=== PATIENT | female | born 1970 | race Caucasian/White ===

== ENCOUNTER 2020-10-28 11:31 | Inpatient (IN) | payer MEDICAID ==
[~2020-10-28] VITALS: Ht 177.8 cm; Wt 48.1 kg
--- NOTE | 2020-10-28 11:57 | NUR ---
PT COMES IN C/O LEFT LOWER QUAD PELVIC PAIN WITH LEFT FLANK TENDERNESS. STATES DIARRHEA FOLLOWING EACH MEAL. STATES 15-20 LB WEIGHT LOSS SINCE 06/2020. STATES NAUSEA AND LOSS OF APPETITE. MONITORS CONNECTED. VSS. WARM BLANKET PROVIDED. SIGN OTHER AT BESIDE.
--- NOTE | 2020-10-28 11:57 | NUR ---
PROVIDER AT BEDSIDE
[2020-10-28] MEDS ORDERED: SODIUM CHLORIDE 0.9% 1,000ML IVBOLUS ONE (12:00)
[2020-10-28] MEDS ORDERED: ONDANSETRON 2MG/ML, 2ML IVPush ONE (12:00)
[2020-10-28] MEDS ORDERED: MORPHINE SULFATE 4 MG/ML, 1ML ONE ×2 (12:16→13:18)
[2020-10-28] MEDS ORDERED: ONDANSETRON 2MG/ML, 2ML ONE (12:16)
[2020-10-28] MEDS: MORPHINE SULFATE 4 MG/ML, 1ML IVPush PRN ×2 (12:18→13:19)
--- NOTE | 2020-10-28 12:26 | NUR ---
PT RESTING ON GURNEY. ORDERED MEDICATIONS ADMINISTERING AND INFUSING. PT STATES UNABLE TO URINATE OR HAVE BM AT THIS TIME. PT EDUCATED TO CALL FOR ASSISTANCE WHEN NEED TO VOID OR HAVE BM. VSJosé Luis. SARAHI.
--- NOTE | 2020-10-28 12:47 | NUR ---
PT RESTING ON GURNEY. FSBG AT 70 AND DOCUMENTED. PT. STATES PAIN LEVEL "MUCH BETTER". VSS. NAD
[2020-10-28 12:53] LABS: ALANINE AMINOTRANSFERASE 22 U/L (12-78); ALBUMIN 2.7 g/dL (3.4-5.0); ANION GAP 7 mmol/L (5-15); CALCIUM 8.5 mg/dL (8.5-10.1); CHLORIDE 106 mmol/L (98-107); CREATININE 0.85 mg/dL (0.55-1.02)
[2020-10-28 12:55] LABS: ALKALINE PHOSPHATASE 139 U/L (45-117); BILIRUBIN,TOTAL 0.3 mg/dL (0.2-1.0); TOTAL PROTEIN 6.7 g/dL (6.4-8.2)
[2020-10-28 12:57] LABS: BASOPHILS % (AUTO) 1 % (0-1); EOSINOPHILS % (AUTO) 1 % (1-7); LYMPHOCYTES % (AUTO) 8 % (22-44); MEAN CORPUSCULAR HEMOGLOBIN 20.7 pg (27.0-34.8); MEAN CORPUSCULAR HGB CONC 30.6 g/dL (32.4-35.8); MEAN PLATELET VOLUME 7.2 fL (7.4-10.4); MONOCYTES % (AUTO) 8 % (2-9); NEUTROPHILS % (AUTO) 82 % (42-75); PLATELET COUNT 771 x10^3/uL (130-400); RED BLOOD COUNT 4.29 x10^6/uL (3.82-5.3); RED CELL DISTRIBUTION WIDTH 18.1 % (9.6-15.2)
--- NOTE | 2020-10-28 13:11 | NUR ---
AMBULAED TO BATHROOM WITH STEADY GAIT
[2020-10-28 13:21] LABS: ANISOCYTOSIS 1+; MD MORPH REVIEW ONLY
[2020-10-28 13:22] LABS: <PLATELET ESTIMATE> INCREASED; HYPOCHROMIA 1+; LARGE PLATELETS 1+; MICROCYTOSIS 1+; OVALOCYTES 1+
[2020-10-28] MEDS ORDERED: OMNIPAQUE 350 MG/ML, 100ML BOTTLE ONE (13:35)
[2020-10-28 14:00] LABS: MICROSCOPIC INDICATED
[2020-10-28] MEDS ORDERED: ACETAMINOPHEN 325 MG TABLET PO PRN (15:00)
[2020-10-28] MEDS ORDERED: HYDROmorphone 1 MG/ML, 1ML INJ IV PRN (15:00)
[2020-10-28] MEDS ORDERED: ENOXAPARIN 40 MG/0.4 ML SQ SCH (15:00)
[2020-10-28 15:16] LABS: ABSOLUTE RETICS # 0.064 x10^6/uL (0.5-2.5); RED BLOOD COUNT 4.23 x10^6/uL (3.82-5.3); RETICULOCYTE COUNT % 1.52 % (0.5-1.5)
[2020-10-28] MEDS ORDERED: GOLYTELY 4,000ML ORAL.SOL PO ONE (15:30)
[2020-10-28] MEDS ORDERED: OMNIPAQUE 350 MG/ML, 75ML BOTTLE ONE (16:31)
[2020-10-28] MEDS: SODIUM CHLORIDE 0.9% 1,000 ML IV SCH (17:31)
[2020-10-28] MEDS: PIPERACILLIN/TAZO/PMX 3.375GM 50 ML IV SCH (17:31)
[2020-10-28] MEDS: ONDANSETRON 2MG/ML, 2ML IVPush PRN (17:47)
[2020-10-28 17:51] LABS: MICROSCOPIC NOT IND
[2020-10-28] MEDS: FAMOTIDINE 20 MG/2 ML IVPush SCH (19:41)
[2020-10-28] MEDS: HYDROmorphone 1 MG/ML, 1ML INJ IV PRN (21:01)
[2020-10-28 21:14] VITALS: BP 112/55
[2020-10-29 01:17] VITALS: BP 122/72
[2020-10-29] MEDS: PIPERACILLIN/TAZO/PMX 3.375GM 50 ML IV SCH ×3 (01:20→17:10)
[2020-10-29] MEDS: HYDROmorphone 1 MG/ML, 1ML INJ IV PRN ×5 (01:21→21:11)
[2020-10-29 05:40] LABS: ALANINE AMINOTRANSFERASE 18 U/L (12-78); ALBUMIN 2.3 g/dL (3.4-5.0); ALKALINE PHOSPHATASE 113 U/L (45-117); ANION GAP 7 mmol/L (5-15); BILIRUBIN, DIRECT 0.1 mg/dL (0.1-0.2); BILIRUBIN,INDIRECT 0.3 mg/dL (0.0-2.0); BILIRUBIN,TOTAL 0.4 mg/dL (0.2-1.0); CALCIUM 7.9 mg/dL (8.5-10.1); CHLORIDE 109 mmol/L (98-107); CREATININE 0.59 mg/dL (0.55-1.02); TOTAL PROTEIN 5.9 g/dL (6.4-8.2)
[2020-10-29] MEDS: SODIUM CHLORIDE 0.9% 1,000 ML IV SCH ×3 (06:20→21:10)
[2020-10-29 07:47] VITALS: BP 128/73
[2020-10-29] MEDS: FAMOTIDINE 20 MG/2 ML IVPush SCH ×2 (08:13→21:10)
[2020-10-29 09:48] LABS: BASOPHILS % (AUTO) 1 % (0-1); EOSINOPHILS % (AUTO) 1 % (1-7); LYMPHOCYTES % (AUTO) 5 % (22-44); MEAN CORPUSCULAR HEMOGLOBIN 20.9 pg (27.0-34.8); MEAN CORPUSCULAR HGB CONC 30.5 g/dL (32.4-35.8); MEAN PLATELET VOLUME 7.2 fL (7.4-10.4); MONOCYTES % (AUTO) 5 % (2-9); NEUTROPHILS % (AUTO) 89 % (42-75); PLATELET COUNT 713 x10^3/uL (130-400); RED CELL DISTRIBUTION WIDTH 17.9 % (9.6-15.2)
[2020-10-29 10:04] LABS: CLOSTRIDIUM DIFFICILE ANTIGEN POSITIVE; CLOSTRIDIUM DIFFICILE TOXIN NEGATIVE (Negative)
[2020-10-29 10:13] LABS: MD SCAN
[2020-10-29] MEDS ORDERED: CHLORHEXIDINE 15 ML UDC MM ONE (10:30)
[2020-10-29] MEDS ORDERED: PROPOFOL 50 ML ONE (11:17)
[2020-10-29] MEDS ORDERED: ACETAMINOPHEN 325 MG TABLET PO PRN (11:30)
[2020-10-29] MEDS ORDERED: FENTANYL PF 100 MCG/2ML IV PRN (11:30)
[2020-10-29] MEDS ORDERED: ONDANSETRON 2MG/ML, 2ML IVPush PRN (11:30)
[2020-10-29 11:41] LABS: HCG UR SG 1.031 (1.003-1.030)
[2020-10-29 12:45] VITALS: BP 114/73
[2020-10-29 14:43] VITALS: BP 114/73
[2020-10-29 19:03] VITALS: BP 120/70
[2020-10-29] MEDS: VANCOMYCIN 50 MG/ML ORAL SUSP PO SCH (23:40)
[2020-10-30] MEDS: PIPERACILLIN/TAZO/PMX 3.375GM 50 ML IV SCH ×3 (01:26→20:15)
[2020-10-30] MEDS: HYDROmorphone 1 MG/ML, 1ML INJ IV PRN ×3 (01:27→10:44)
[2020-10-30 01:43] VITALS: BP 104/62
[2020-10-30] MEDS: VANCOMYCIN 50 MG/ML ORAL SUSP PO SCH ×4 (05:47→23:00)
[2020-10-30 07:00] VITALS: BP 132/66
[2020-10-30] MEDS: FAMOTIDINE 20 MG/2 ML IVPush SCH ×2 (09:40→22:37)
[2020-10-30] MEDS: ONDANSETRON 2MG/ML, 2ML IVPush PRN ×2 (09:40→13:30)
[2020-10-30] MEDS: SODIUM CHLORIDE 0.9% 1,000 ML IV SCH (09:42)
[2020-10-30] MEDS ORDERED: OXYcodone/APAP 7.5/325MG TABLET PO PRN (11:30)
[2020-10-30 13:41] VITALS: BP 112/71
[2020-10-30] MEDS ORDERED: FENTANYL PF 250 MCG/5ML ONE (14:38)
[2020-10-30] MEDS ORDERED: MIDAZOLAM 1 MG/ML, 2ML ONE (14:38)
[2020-10-30] MEDS ORDERED: CHLORHEXIDINE 15 ML UDC MM ONE (15:00)
[2020-10-30] MEDS ORDERED: SUGAMMADEX 200 MG/2 ML IVPush ONE (15:14)
[2020-10-30] MEDS ORDERED: PHENYLEPHRINE 10 MG/ML ONE (15:14)
[2020-10-30] MEDS ORDERED: ONDANSETRON 2MG/ML, 2ML ONE (15:14)
[2020-10-30] MEDS ORDERED: ALBUMIN HUMAN 5% 500 ML ONE (15:31)
[2020-10-30] MEDS ORDERED: PROMETHAZINE 25 MG/ML, 1ML ONE (15:41)
[2020-10-30] MEDS ORDERED: FENTANYL PF 100 MCG/2ML ONE ×2 (15:41→16:52)
[2020-10-30] MEDS ORDERED: MEPERIDINE/PF 25MG/ML,1ML ONE (15:42)
[2020-10-30] MEDS ORDERED: hydrALAzine 20 MG/ML, 1ML IV PRN (16:00)
[2020-10-30] MEDS ORDERED: HYDROmorphone 1 MG/ML, 1ML INJ IVPush PRN (16:00)
[2020-10-30] MEDS ORDERED: OXYcodone 5 MG/5 ML ORAL.SOL UDC PO PRN (16:00)
[2020-10-30] MEDS ORDERED: MIDAZOLAM 1 MG/ML, 2ML IV PRN (16:00)
[2020-10-30] MEDS ORDERED: LABETALOL 5MG/ML, 20ML IV PRN (16:00)
[2020-10-30] MEDS ORDERED: MEPERIDINE/PF 25MG/0.5ML IVPush PRN (16:00)
[2020-10-30] MEDS ORDERED: FENTANYL PF 100 MCG/2ML IV PRN (16:00)
[2020-10-30] MEDS ORDERED: PROMETHAZINE 12.5 MG SUPP PR PRN (16:00)
[2020-10-30] MEDS ORDERED: DIPHENHYDRAMINE 50 MG/ML, 1ML IVPush PRN (16:00)
[2020-10-30] MEDS ORDERED: DIAZEPAM 5 MG/ML, 2ML IVPush PRN (16:00)
[2020-10-30] MEDS ORDERED: PROMETHAZINE 25 MG/ML, 1ML IVPush PRN (16:00)
[2020-10-30] MEDS ORDERED: ONDANSETRON 2MG/ML, 2ML IVPush PRN (16:00)
[2020-10-30] MEDS ORDERED: EPHEDRINE 50 MG/ML, 1ML IVPush PRN (16:00)
[2020-10-30] MEDS ORDERED: ALBUTEROL SULFATE 2.5 MG/3 ML NPPB PRN (16:00)
[2020-10-30] MEDS ORDERED: ROCURONIUM 10MG/ML,5ML ONE (16:11)
[2020-10-30] MEDS ORDERED: PROPOFOL 10 MG/ML, 20ML ONE (16:11)
[2020-10-30] MEDS ORDERED: SODIUM BICARBONATE 1 MEQ/ML, 50ML VIAL ONE (17:35)
[2020-10-30] MEDS ORDERED: LORazepam 1MG TABLET PO PRN (19:30)
[2020-10-30] MEDS ORDERED: ACETAMINOPHEN 325 MG TABLET PO PRN (19:30)
[2020-10-30] MEDS ORDERED: DIPHENHYDRAMINE 50 MG/ML, 1ML IV PRN (19:30)
[2020-10-30] MEDS ORDERED: LORazepam 2 MG/ML, 1ML IV PRN (19:30)
[2020-10-30] MEDS ORDERED: morphine SULFATE 10 MG/ML, 1ML IV PRN (19:30)
[2020-10-30] MEDS ORDERED: ACETAMINOPHEN 650 MG SUPP PR PRN (19:30)
[2020-10-30 19:50] VITALS: BP 134/82
[2020-10-30] MEDS: LACTATED RINGERS 1,000 ML IV SCH (20:09)
[2020-10-30] MEDS: KETOROLAC 30 MG/1 ML IV PRN (22:36)
[2020-10-31] MEDS: PIPERACILLIN/TAZO/PMX 3.375GM 50 ML IV SCH ×4 (01:47→21:43)
[2020-10-31 02:33] VITALS: BP 97/61
[2020-10-31] MEDS: LACTATED RINGERS 1,000 ML IV SCH (03:10)
[2020-10-31 05:22] LABS: MEAN CORPUSCULAR HGB CONC 32.3 g/dL (32.4-35.8); MEAN PLATELET VOLUME 6.9 fL (7.4-10.4); PLATELET COUNT 528 x10^3/uL (130-400); RED CELL DISTRIBUTION WIDTH 22.3 % (9.6-15.2)
[2020-10-31 05:35] LABS: ALANINE AMINOTRANSFERASE 12 U/L (12-78); ALBUMIN 1.8 g/dL (3.4-5.0); ANION GAP 7 mmol/L (5-15); CALCIUM 7.7 mg/dL (8.5-10.1); CHLORIDE 106 mmol/L (98-107); CREATININE 0.58 mg/dL (0.55-1.02)
[2020-10-31 05:37] LABS: ALKALINE PHOSPHATASE 62 U/L (45-117); BILIRUBIN,TOTAL 6.9 mg/dL (0.2-1.0); TOTAL PROTEIN 4.4 g/dL (6.4-8.2)
[2020-10-31] MEDS: ENOXAPARIN 40 MG/0.4 ML SQ SCH (06:00)
[2020-10-31 06:13] LABS: MD YES
[2020-10-31 06:16] LABS: <PLATELET ESTIMATE> INCREASED; <PLT MORPHOLOGY> NORMAL PLT MORPH; ANISOCYTOSIS 1+; BAND#(MANUAL) 8.39 x10^3/uL; BANDS%(MANUAL) 43 % (0-7); HYPOCHROMIA 1+; LYMPH#(MANUAL) 0.59 x10^3/uL (1-3.4); LYMPHS% (MANUAL) 3 % (22-44); METAMYELOCYTES# (MANUAL) 1.37 x10^3/uL (0-0); METAMYELOCYTES% (MANUAL) 7 % (0-1); MICROCYTOSIS 1+; MONOS#(MANUAL) 0.59 x10^3/uL (0.3-2.7); MONOS% (MANUAL) 3 % (2-9); OVALOCYTES 1+; PMNS WITH VACUOLES 1+; SEG#(MANUAL) 8.58 x10^3/uL (1.8-6.8); SEGS% (MANUAL) 44 % (42-75)
[2020-10-31] MEDS: VANCOMYCIN 50 MG/ML ORAL SUSP PO SCH ×4 (06:28→23:33)
[2020-10-31] MEDS ORDERED: MAGNESIUM SULFATE PMX 4GM/100M 100 ML IVPB ONE (07:00)
[2020-10-31 08:09] VITALS: BP 98/62
[2020-10-31] MEDS ORDERED: D5%-0.9% NACL+KCL 20MEQ 1,000 ML IV SCH (08:30)
[2020-10-31 08:32] LABS: MEAN CORPUSCULAR HGB CONC 32.3 g/dL (32.4-35.8); MEAN PLATELET VOLUME 6.9 fL (7.4-10.4); PLATELET COUNT 599 x10^3/uL (130-400); RED BLOOD COUNT 4.93 x10^6/uL (3.82-5.3); RED CELL DISTRIBUTION WIDTH 22.6 % (9.6-15.2)
[2020-10-31 08:36] LABS: ANION GAP 5 mmol/L (5-15); CALCIUM 8.1 mg/dL (8.5-10.1); CHLORIDE 108 mmol/L (98-107); CREATININE 0.62 mg/dL (0.55-1.02)
[2020-10-31] MEDS ORDERED: TPN PER PHARMACY IV SCH (09:00)
[2020-10-31] MEDS: FAMOTIDINE 20 MG/2 ML IVPush SCH ×2 (09:42→21:43)
[2020-10-31] MEDS: POTASSIUM CHLORIDE 40 MEQ in SODIUM CHLORIDE 0.9% 500 ML IV SCH ×2 (09:53→16:52)
[2020-10-31 10:19] LABS: MD YES
[2020-10-31 10:21] LABS: <PLATELET ESTIMATE> INCREASED; <PLT MORPHOLOGY> NORMAL PLT MORPH; ANISOCYTOSIS 1+; BAND#(MANUAL) 7.26 x10^3/uL; BANDS%(MANUAL) 32 % (0-7); LYMPH#(MANUAL) 0.91 x10^3/uL (1-3.4); LYMPHS% (MANUAL) 4 % (22-44); METAMYELOCYTES# (MANUAL) 0.45 x10^3/uL (0-0); METAMYELOCYTES% (MANUAL) 2 % (0-1); MICROCYTOSIS 1+; MONOS#(MANUAL) 0.68 x10^3/uL (0.3-2.7); MONOS% (MANUAL) 3 % (2-9); OVALOCYTES 1+; PMNS WITH VACUOLES 1+; POLYCHROMASIA 1+; SEG#(MANUAL) 13.39 x10^3/uL (1.8-6.8); SEGS% (MANUAL) 59 % (42-75)
[2020-10-31 12:17] VITALS: BP 88/55
[2020-10-31] MEDS ORDERED: SODIUM CHLORIDE 0.9%, 500ML IVBOLUS ONE ×2 (13:00→19:00)
[2020-10-31 15:03] VITALS: BP 95/59
[2020-10-31] MEDS ORDERED: DEXTROSE 10% 500 ML IV PRN (17:00)
[2020-10-31] MEDS ORDERED: D5%-0.9% NACL 1,000 ML IV SCH ×2 (17:00→18:30)
[2020-10-31] MEDS ORDERED: AMINO ACID 10% IV SCH (17:00)
[2020-10-31] MEDS ORDERED: DEXTROSE 70% IV SCH (17:00)
[2020-10-31] MEDS ORDERED: [UNRECOGNIZED DRUG - OTHER] IV SCH (17:00)
[2020-10-31] MEDS ORDERED: DEXTROSE 50%, 50ML SYRINGE IVPush PRN (17:00)
[2020-10-31] MEDS ORDERED: SMOF TPN IV SCH (17:00)
[2020-10-31] MEDS ORDERED: FAT EMUL IV SCH (17:00)
[2020-10-31] MEDS: FILTER, DISP 1.2 MICRON FOR TPN/PVN IV PRN (17:10)
[2020-10-31 18:45] VITALS: BP 146/85
[2020-10-31 20:06] VITALS: BP 109/66
[2020-10-31] MEDS: INSULIN REGULAR LOW DOSE Q6H X 48HRS SQ-INSULIN SCH (21:00)
[2020-11-01 01:34] VITALS: BP 100/62
[2020-11-01] MEDS: INSULIN REGULAR LOW DOSE Q6H X 48HRS SQ-INSULIN SCH ×4 (03:00→20:24)
[2020-11-01] MEDS: PIPERACILLIN/TAZO/PMX 3.375GM 50 ML IV SCH ×4 (04:06→20:06)
[2020-11-01] MEDS: KETOROLAC 30 MG/1 ML IV PRN ×3 (04:06→22:49)
[2020-11-01 04:45] LABS: MEAN CORPUSCULAR HEMOGLOBIN 23.9 pg (27.0-34.8); MEAN PLATELET VOLUME 6.9 fL (7.4-10.4); PLATELET COUNT 534 x10^3/uL (130-400); RED BLOOD COUNT 4.28 x10^6/uL (3.82-5.3); RED CELL DISTRIBUTION WIDTH 22.5 % (9.6-15.2)
[2020-11-01 04:57] LABS: ALBUMIN 1.6 g/dL (3.4-5.0); ANION GAP 4 mmol/L (5-15); CALCIUM 7.9 mg/dL (8.5-10.1); CHLORIDE 110 mmol/L (98-107)
[2020-11-01 05:02] LABS: ALANINE AMINOTRANSFERASE 18 U/L (12-78); ALKALINE PHOSPHATASE 65 U/L (45-117); CREATININE 0.58 mg/dL (0.55-1.02); PREALBUMIN < 3.0 mg/dL (20.0-40.0); TOTAL PROTEIN 4.6 g/dL (6.4-8.2); TRIGLYCERIDES 203 mg/dL (50-200)
[2020-11-01] MEDS: VANCOMYCIN 50 MG/ML ORAL SUSP PO SCH ×4 (05:24→22:49)
[2020-11-01] MEDS: ENOXAPARIN 40 MG/0.4 ML SQ SCH (05:26)
[2020-11-01 05:45] LABS: MD YES
[2020-11-01 05:47] LABS: ANISOCYTOSIS 1+; BAND#(MANUAL) 4.88 x10^3/uL; BANDS%(MANUAL) 23 % (0-7); LYMPH#(MANUAL) 0.85 x10^3/uL (1-3.4); LYMPHS% (MANUAL) 4 % (22-44); MICROCYTOSIS 1+; MONOS#(MANUAL) 0.85 x10^3/uL (0.3-2.7); MONOS% (MANUAL) 4 % (2-9); SEGS% (MANUAL) 69 % (42-75)
[2020-11-01 05:48] LABS: <PLATELET ESTIMATE> INCREASED; <PLT MORPHOLOGY> NORMAL PLT MORPH; OVALOCYTES 1+
[2020-11-01 07:23] VITALS: BP 94/56
[2020-11-01] MEDS: FAMOTIDINE 20 MG/2 ML IVPush SCH ×2 (08:52→20:19)
[2020-11-01 12:55] LABS: HCG UR SG 1.032 (1.003-1.030)
[2020-11-01 13:44] VITALS: BP 107/67
[2020-11-01] MEDS ORDERED: [UNRECOGNIZED DRUG - OTHER] IV SCH (17:00)
[2020-11-01] MEDS ORDERED: SMOF TPN IV SCH (17:00)
[2020-11-01] MEDS ORDERED: DEXTROSE 70% IV SCH (17:00)
[2020-11-01] MEDS ORDERED: FAT EMUL IV SCH (17:00)
[2020-11-01] MEDS ORDERED: AMINO ACID 10% IV SCH (17:00)
[2020-11-01] MEDS: FILTER, DISP 1.2 MICRON FOR TPN/PVN IV PRN (17:50)
[2020-11-01 20:15] VITALS: BP 122/74
[2020-11-02 01:21] VITALS: BP 108/63
[2020-11-02] MEDS: PIPERACILLIN/TAZO/PMX 3.375GM 50 ML IV SCH ×4 (02:52→21:29)
[2020-11-02] MEDS: INSULIN REGULAR LOW DOSE Q6H X 48HRS SQ-INSULIN SCH ×3 (03:00→15:00)
[2020-11-02] MEDS: VANCOMYCIN 50 MG/ML ORAL SUSP PO SCH ×4 (04:51→23:36)
[2020-11-02] MEDS: KETOROLAC 30 MG/1 ML IV PRN ×2 (04:51→19:16)
[2020-11-02] MEDS: ENOXAPARIN 40 MG/0.4 ML SQ SCH (04:57)
[2020-11-02 05:11] LABS: PLATELET COUNT 542 x10^3/uL (130-400); RED BLOOD COUNT 4.56 x10^6/uL (3.82-5.3); RED CELL DISTRIBUTION WIDTH 23.3 % (9.6-15.2)
[2020-11-02 05:20] LABS: ANION GAP 2 mmol/L (5-15); CALCIUM 8.2 mg/dL (8.5-10.1); CHLORIDE 102 mmol/L (98-107); CREATININE 0.58 mg/dL (0.55-1.02)
[2020-11-02 06:04] LABS: MD YES
[2020-11-02 06:05] LABS: BAND#(MANUAL) 1.42 x10^3/uL; BANDS%(MANUAL) 6 % (0-7); LYMPH#(MANUAL) 1.19 x10^3/uL (1-3.4); LYMPHS% (MANUAL) 5 % (22-44); MONOS#(MANUAL) 1.42 x10^3/uL (0.3-2.7); MONOS% (MANUAL) 6 % (2-9); SEG#(MANUAL) 19.67 x10^3/uL (1.8-6.8); SEGS% (MANUAL) 83 % (42-75)
[2020-11-02 06:06] LABS: <PLATELET ESTIMATE> INCREASED; <PLT MORPHOLOGY> NORMAL PLT MORPH; ANISOCYTOSIS 1+; MICROCYTOSIS 1+; OVALOCYTES 1+; POLYCHROMASIA 1+
[2020-11-02 06:07] LABS: HYPOCHROMIA 1+; TOXIC GRAN 1+
[2020-11-02 06:08] LABS: PMNS WITH VACUOLES 1+
[2020-11-02 08:37] VITALS: BP 118/69
[2020-11-02] MEDS: FAMOTIDINE 20 MG/2 ML IVPush SCH ×2 (09:23→21:29)
[2020-11-02 13:35] VITALS: BP 133/84
[2020-11-02] MEDS ORDERED: GLUCAGON 1 MG IM PRN (16:30)
[2020-11-02] MEDS ORDERED: DEXTROSE 4 GM TAB.CHEW PO PRN (16:30)
[2020-11-02] MEDS ORDERED: DEXTROSE 50%, 50ML SYRINGE IVPush PRN (16:30)
[2020-11-02] MEDS ORDERED: FAT EMUL IV SCH (17:00)
[2020-11-02] MEDS ORDERED: [UNRECOGNIZED DRUG - OTHER] IV SCH (17:00)
[2020-11-02] MEDS ORDERED: DEXTROSE 70% IV SCH (17:00)
[2020-11-02] MEDS ORDERED: SMOF TPN IV SCH (17:00)
[2020-11-02] MEDS ORDERED: AMINO ACID 10% IV SCH (17:00)
[2020-11-02] MEDS: D5%-0.45% NACL 1,000 ML IV SCH (17:02)
[2020-11-02 18:44] VITALS: BP 119/73
[2020-11-02] MEDS: SODIUM CHLORIDE FLUSH 10ML SYR IVF SCH (21:29)
[2020-11-03 00:34] VITALS: BP 108/69
[2020-11-03] MEDS: PIPERACILLIN/TAZO/PMX 3.375GM 50 ML IV SCH ×4 (03:12→20:36)
[2020-11-03] MEDS: ONDANSETRON 2MG/ML, 2ML IV PRN ×3 (03:17→20:35)
[2020-11-03 05:35] LABS: MEAN CORPUSCULAR HEMOGLOBIN 24.2 pg (27.0-34.8); MEAN CORPUSCULAR HGB CONC 32.2 g/dL (32.4-35.8); MEAN PLATELET VOLUME 7.2 fL (7.4-10.4); PLATELET COUNT 517 x10^3/uL (130-400); RED BLOOD COUNT 4.85 x10^6/uL (3.82-5.3); RED CELL DISTRIBUTION WIDTH 24.3 % (9.6-15.2)
[2020-11-03 05:46] LABS: ANION GAP 3 mmol/L (5-15); CALCIUM 8.5 mg/dL (8.5-10.1); CHLORIDE 100 mmol/L (98-107)
[2020-11-03 05:47] LABS: CREATININE 0.51 mg/dL (0.55-1.02)
[2020-11-03] MEDS: VANCOMYCIN 50 MG/ML ORAL SUSP PO SCH ×4 (05:51→23:17)
[2020-11-03] MEDS: ENOXAPARIN 40 MG/0.4 ML SQ SCH (05:53)
[2020-11-03 06:20] LABS: MD YES
[2020-11-03 06:21] LABS: BAND#(MANUAL) 0.41 x10^3/uL; BANDS%(MANUAL) 2 % (0-7); EOS#(MANUAL) 0.82 x10^3/uL (0.0-0.4); EOS% (MANUAL) 4 % (1-7); LYMPH#(MANUAL) 1.22 x10^3/uL (1-3.4); LYMPHS% (MANUAL) 6 % (22-44); METAMYELOCYTES% (MANUAL) 1 % (0-1); MONOS#(MANUAL) 2.65 x10^3/uL (0.3-2.7); MONOS% (MANUAL) 13 % (2-9); SEGS% (MANUAL) 74 % (42-75)
[2020-11-03 06:22] LABS: ANISOCYTOSIS 1+; HYPOCHROMIA 1+; MICROCYTOSIS 1+; POLYCHROMASIA 1+
[2020-11-03 06:23] LABS: OVALOCYTES 1+; PMNS WITH VACUOLES 1+
[2020-11-03 06:26] LABS: <PLATELET ESTIMATE> INCREASED; <PLT MORPHOLOGY> NORMAL PLT MORPH
[2020-11-03] MEDS ORDERED: INSULIN REGULAR LOW DOSE QDAY SQ-INSULIN SCH (07:30)
[2020-11-03 08:11] VITALS: BP 107/70
[2020-11-03] MEDS: SODIUM CHLORIDE FLUSH 10ML SYR IVF SCH ×2 (09:00→20:36)
[2020-11-03] MEDS: FAMOTIDINE 20 MG/2 ML IVPush SCH (09:10)
[2020-11-03] MEDS: D5%-0.45% NACL 1,000 ML IV SCH (11:25)
[2020-11-03 13:46] VITALS: BP 116/74
[2020-11-03] MEDS: FILTER, DISP 1.2 MICRON FOR TPN/PVN IV PRN (16:45)
[2020-11-03] MEDS ORDERED: AMINO ACID 10% IV SCH (17:00)
[2020-11-03] MEDS ORDERED: FAT EMUL IV SCH (17:00)
[2020-11-03] MEDS ORDERED: [UNRECOGNIZED DRUG - OTHER] IV SCH (17:00)
[2020-11-03] MEDS ORDERED: DEXTROSE 70% IV SCH (17:00)
[2020-11-03] MEDS ORDERED: SMOF TPN IV SCH (17:00)
[2020-11-03 18:18] VITALS: BP 117/74
[2020-11-03] MEDS ORDERED: DIPHENHYDRAMINE 50 MG/ML, 1ML ONE (23:22)
[2020-11-03] MEDS: DIPHENHYDRAMINE 25 MG CAPSULE PO PRN (23:24)
[2020-11-04 00:31] VITALS: BP 111/75
[2020-11-04] MEDS: PIPERACILLIN/TAZO/PMX 3.375GM 50 ML IV SCH ×4 (02:43→21:37)
[2020-11-04] MEDS: ENOXAPARIN 40 MG/0.4 ML SQ SCH (05:34)
[2020-11-04] MEDS: VANCOMYCIN 50 MG/ML ORAL SUSP PO SCH ×4 (05:35→23:00)
[2020-11-04 05:39] LABS: ANION GAP 3 mmol/L (5-15); CALCIUM 8.7 mg/dL (8.5-10.1); CHLORIDE 102 mmol/L (98-107); CREATININE 0.48 mg/dL (0.55-1.02)
[2020-11-04 05:43] LABS: MEAN CORPUSCULAR HEMOGLOBIN 23.9 pg (27.0-34.8); MEAN CORPUSCULAR HGB CONC 31.8 g/dL (32.4-35.8); MEAN PLATELET VOLUME 7.4 fL (7.4-10.4); PLATELET COUNT 563 x10^3/uL (130-400); RED BLOOD COUNT 5.47 x10^6/uL (3.82-5.3); RED CELL DISTRIBUTION WIDTH 24.7 % (9.6-15.2)
[2020-11-04] MEDS: ONDANSETRON 2MG/ML, 2ML IV PRN (05:43)
[2020-11-04 06:17] LABS: MD YES
[2020-11-04 06:18] LABS: <PLATELET ESTIMATE> INCREASED; ANISOCYTOSIS 1+; BAND#(MANUAL) 1.16 x10^3/uL; BANDS%(MANUAL) 4 % (0-7); EOS#(MANUAL) 0.29 x10^3/uL (0.0-0.4); EOS% (MANUAL) 1 % (1-7); HYPOCHROMIA 1+; LYMPH#(MANUAL) 1.75 x10^3/uL (1-3.4); LYMPHS% (MANUAL) 6 % (22-44); MICROCYTOSIS 1+; MONOS#(MANUAL) 4.07 x10^3/uL (0.3-2.7); MONOS% (MANUAL) 14 % (2-9); OVALOCYTES 1+; POLYCHROMASIA 1+; SEG#(MANUAL) 21.83 x10^3/uL (1.8-6.8); SEGS% (MANUAL) 75 % (42-75)
[2020-11-04 06:19] LABS: <PLT MORPHOLOGY> NORMAL PLT MORPH
[2020-11-04 06:21] LABS: PMNS WITH VACUOLES 1+
[2020-11-04] MEDS: D5%-0.45% NACL 1,000 ML IV SCH (09:00)
[2020-11-04] MEDS: SODIUM CHLORIDE FLUSH 10ML SYR IVF SCH ×2 (09:00→21:37)
[2020-11-04 09:09] VITALS: BP 113/78
[2020-11-04] MEDS ORDERED: METOCLOPRAMIDE 5 MG/ML, 2ML IVPush PRN (11:00)
[2020-11-04] MEDS: METRONIDAZOLE PMX 500MG/100ML 100 ML IV SCH ×2 (12:02→16:48)
[2020-11-04 13:38] VITALS: BP 111/73
[2020-11-04] MEDS: FILTER, DISP 1.2 MICRON FOR TPN/PVN IV PRN (16:48)
[2020-11-04] MEDS ORDERED: DEXTROSE 70% IV SCH (17:00)
[2020-11-04] MEDS ORDERED: AMINO ACID 10% IV SCH (17:00)
[2020-11-04] MEDS ORDERED: FAT EMUL IV SCH (17:00)
[2020-11-04] MEDS ORDERED: [UNRECOGNIZED DRUG - OTHER] IV SCH (17:00)
[2020-11-04] MEDS ORDERED: SMOF TPN IV SCH (17:00)
[2020-11-04 19:14] VITALS: BP 107/71
[2020-11-05] MEDS: PIPERACILLIN/TAZO/PMX 3.375GM 50 ML IV SCH ×4 (02:54→21:02)
[2020-11-05 02:56] VITALS: BP 104/69
[2020-11-05] MEDS: VANCOMYCIN 50 MG/ML ORAL SUSP PO SCH (05:00)
[2020-11-05] MEDS: ENOXAPARIN 40 MG/0.4 ML SQ SCH (05:37)
[2020-11-05] MEDS: D5%-0.45% NACL 1,000 ML IV SCH (05:56)
[2020-11-05 06:25] LABS: BASOPHILS % (AUTO) 0 % (0-1); EOSINOPHILS % (AUTO) 3 % (1-7); LYMPHOCYTES % (AUTO) 7 % (22-44); MEAN CORPUSCULAR HEMOGLOBIN 23.9 pg (27.0-34.8); MEAN CORPUSCULAR HGB CONC 31.8 g/dL (32.4-35.8); MEAN PLATELET VOLUME 7.3 fL (7.4-10.4); MONOCYTES % (AUTO) 15 % (2-9); NEUTROPHILS % (AUTO) 75 % (42-75); PLATELET COUNT 517 x10^3/uL (130-400); RED BLOOD COUNT 4.96 x10^6/uL (3.82-5.3); RED CELL DISTRIBUTION WIDTH 24.8 % (9.6-15.2)
[2020-11-05 06:31] LABS: ALBUMIN 1.8 g/dL (3.4-5.0); CALCIUM 8.6 mg/dL (8.5-10.1); CHLORIDE 106 mmol/L (98-107)
[2020-11-05 06:37] LABS: ALANINE AMINOTRANSFERASE 20 U/L (12-78); ALKALINE PHOSPHATASE 174 U/L (45-117); ANION GAP 4 mmol/L (5-15); CREATININE 0.58 mg/dL (0.55-1.02); PREALBUMIN 7.2 mg/dL (20.0-40.0); TOTAL PROTEIN 5.6 g/dL (6.4-8.2); TRIGLYCERIDES 148 mg/dL (50-200)
[2020-11-05 07:00] LABS: MD SCAN
[2020-11-05 07:53] VITALS: BP 95/63
[2020-11-05] MEDS: SODIUM CHLORIDE FLUSH 10ML SYR IVF SCH ×2 (08:26→21:04)
[2020-11-05] MEDS: metroNIDAZOLE 500 MG TABLET PO SCH ×2 (09:58→17:06)
[2020-11-05] MEDS: ONDANSETRON 2MG/ML, 2ML IV PRN (10:50)
[2020-11-05 14:05] VITALS: BP 107/74
[2020-11-05] MEDS ORDERED: OMNIPAQUE 350 MG/ML, 100ML BOTTLE ONE (14:58)
[2020-11-05] MEDS ORDERED: FAT EMUL IV SCH (17:00)
[2020-11-05] MEDS ORDERED: [UNRECOGNIZED DRUG - OTHER] IV SCH (17:00)
[2020-11-05] MEDS ORDERED: DEXTROSE 70% IV SCH (17:00)
[2020-11-05] MEDS ORDERED: SMOF TPN IV SCH (17:00)
[2020-11-05] MEDS ORDERED: AMINO ACID 10% IV SCH (17:00)
[2020-11-05 20:31] VITALS: BP 105/68
[2020-11-06] MEDS: D5%-0.45% NACL 1,000 ML IV SCH ×2 (00:14→17:55)
[2020-11-06 00:16] VITALS: BP 98/63
[2020-11-06] MEDS: metroNIDAZOLE 500 MG TABLET PO SCH ×3 (01:38→20:33)
[2020-11-06] MEDS: PIPERACILLIN/TAZO/PMX 3.375GM 50 ML IV SCH ×3 (03:20→15:41)
[2020-11-06] MEDS: ENOXAPARIN 40 MG/0.4 ML SQ SCH (05:31)
[2020-11-06 06:29] LABS: MEAN CORPUSCULAR HEMOGLOBIN 24.1 pg (27.0-34.8); MEAN CORPUSCULAR HGB CONC 32.2 g/dL (32.4-35.8); MEAN PLATELET VOLUME 7.3 fL (7.4-10.4); PLATELET COUNT 462 x10^3/uL (130-400); RED BLOOD COUNT 4.73 x10^6/uL (3.82-5.3); RED CELL DISTRIBUTION WIDTH 25.3 % (9.6-15.2)
[2020-11-06 06:41] LABS: CHLORIDE 102 mmol/L (98-107)
[2020-11-06 06:47] LABS: ALANINE AMINOTRANSFERASE 21 U/L (12-78); ALBUMIN 1.9 g/dL (3.4-5.0); ALKALINE PHOSPHATASE 153 U/L (45-117); ANION GAP 3 mmol/L (5-15); BILIRUBIN,TOTAL 0.9 mg/dL (0.2-1.0); CALCIUM 8.3 mg/dL (8.5-10.1); TOTAL PROTEIN 5.7 g/dL (6.4-8.2)
[2020-11-06 06:57] VITALS: BP 92/54
[2020-11-06 07:40] LABS: MD YES
[2020-11-06 07:42] LABS: <PLATELET ESTIMATE> INCREASED; <PLT MORPHOLOGY> NORMAL PLT MORPH; ANISOCYTOSIS 1+; BAND#(MANUAL) 0.72 x10^3/uL; BANDS%(MANUAL) 4 % (0-7); EOS#(MANUAL) 0.36 x10^3/uL (0.0-0.4); EOS% (MANUAL) 2 % (1-7); HYPOCHROMIA 1+; LYMPH#(MANUAL) 1.62 x10^3/uL (1-3.4); LYMPHS% (MANUAL) 9 % (22-44); MICROCYTOSIS 1+; MONOS#(MANUAL) 2.34 x10^3/uL (0.3-2.7); MONOS% (MANUAL) 13 % (2-9); OVALOCYTES 1+; POLYCHROMASIA 1+; SEG#(MANUAL) 12.96 x10^3/uL (1.8-6.8); SEGS% (MANUAL) 72 % (42-75)
[2020-11-06] MEDS: ONDANSETRON 2MG/ML, 2ML IV PRN (08:45)
[2020-11-06] MEDS: SODIUM CHLORIDE FLUSH 10ML SYR IVF SCH ×2 (09:53→20:37)
[2020-11-06] MEDS ORDERED: D5%-0.45% NACL 1,000 ML IV SCH (10:00)
[2020-11-06 13:28] VITALS: BP 110/67
[2020-11-06] MEDS ORDERED: DEXTROSE 70% IV SCH (17:00)
[2020-11-06] MEDS ORDERED: SMOF TPN IV SCH (17:00)
[2020-11-06] MEDS ORDERED: FILTER, DISP 1.2 MICRON FOR TPN/PVN IV PRN (17:00)
[2020-11-06] MEDS ORDERED: [UNRECOGNIZED DRUG - OTHER] IV SCH (17:00)
[2020-11-06] MEDS ORDERED: AMINO ACID 10% IV SCH (17:00)
[2020-11-06] MEDS ORDERED: FAT EMUL IV SCH (17:00)
[2020-11-06 19:44] VITALS: BP 100/63
[2020-11-06] MEDS: DIPHENHYDRAMINE 25 MG CAPSULE PO PRN ×2 (20:33→21:54)
[2020-11-07 01:33] VITALS: BP 111/72
[2020-11-07 04:23] LABS: MEAN CORPUSCULAR HEMOGLOBIN 23.8 pg (27.0-34.8); MEAN CORPUSCULAR HGB CONC 31.3 g/dL (32.4-35.8); MEAN PLATELET VOLUME 7.4 fL (7.4-10.4); PLATELET COUNT 448 x10^3/uL (130-400); RED BLOOD COUNT 4.74 x10^6/uL (3.82-5.3)
[2020-11-07 04:34] LABS: ANION GAP 5 mmol/L (5-15); CALCIUM 8.3 mg/dL (8.5-10.1); CHLORIDE 106 mmol/L (98-107); CREATININE 0.54 mg/dL (0.55-1.02)
[2020-11-07] MEDS: metroNIDAZOLE 500 MG TABLET PO SCH (05:00)
[2020-11-07 05:45] LABS: MD YES
[2020-11-07 05:47] LABS: ANISOCYTOSIS 1+; BAND#(MANUAL) 0.47 x10^3/uL; BANDS%(MANUAL) 3 % (0-7); BASOS#(MANUAL) 0.16 x10^3/uL (0-0.1); BASOS% (MANUAL) 1 % (0-1); EOS#(MANUAL) 1.09 x10^3/uL (0.0-0.4); EOS% (MANUAL) 7 % (1-7); HYPOCHROMIA 1+; LYMPH#(MANUAL) 1.72 x10^3/uL (1-3.4); LYMPHS% (MANUAL) 11 % (22-44); METAMYELOCYTES# (MANUAL) 0.16 x10^3/uL (0-0); METAMYELOCYTES% (MANUAL) 1 % (0-1); MICROCYTOSIS 1+; MONOS#(MANUAL) 1.56 x10^3/uL (0.3-2.7); MONOS% (MANUAL) 10 % (2-9); MYELOCYTES# (MANUAL) 0.16 x10^3/uL (0-0); MYELOCYTES% (MANUAL) 1 % (0-0); OVALOCYTES 1+; POLYCHROMASIA 1+; SEGS% (MANUAL) 66 % (42-75)
[2020-11-07 05:48] LABS: <PLATELET ESTIMATE> INCREASED; <PLT MORPHOLOGY> NORMAL PLT MORPH
[2020-11-07] MEDS: ENOXAPARIN 40 MG/0.4 ML SQ SCH (05:55)
[2020-11-07 07:01] VITALS: BP 106/69
[2020-11-07] MEDS: SODIUM CHLORIDE FLUSH 10ML SYR IVF SCH ×2 (09:00→21:41)
[2020-11-07] MEDS: AMOXICILLIN/CLAV 875-125MG TABLET PO SCH ×2 (09:11→17:35)
[2020-11-07] MEDS: ONDANSETRON 2MG/ML, 2ML IV PRN (11:19)
[2020-11-07 12:23] VITALS: BP 114/79
[2020-11-07] MEDS: SIMETHICONE 80 MG CHEW TAB PO PRN ×2 (14:27→21:40)
[2020-11-07] MEDS ORDERED: SMOF TPN IV SCH (17:00)
[2020-11-07] MEDS ORDERED: [UNRECOGNIZED DRUG - OTHER] IV SCH (17:00)
[2020-11-07] MEDS ORDERED: DEXTROSE 70% IV SCH (17:00)
[2020-11-07] MEDS ORDERED: FAT EMUL IV SCH (17:00)
[2020-11-07] MEDS ORDERED: FILTER, DISP 1.2 MICRON FOR TPN/PVN IV PRN (17:00)
[2020-11-07] MEDS ORDERED: AMINO ACID 10% IV SCH (17:00)
[2020-11-07] MEDS: D5%-0.45% NACL 1,000 ML IV SCH (17:35)
[2020-11-07 18:41] VITALS: BP 105/69
[2020-11-07] MEDS: DIPHENHYDRAMINE 25 MG CAPSULE PO PRN ×2 (20:55→21:47)
[2020-11-08 00:21] VITALS: BP 104/69
[2020-11-08] MEDS: AMOXICILLIN/CLAV 875-125MG TABLET PO SCH ×3 (01:12→17:21)
[2020-11-08 05:10] LABS: ANION GAP 6 mmol/L (5-15); CALCIUM 8.2 mg/dL (8.5-10.1); CHLORIDE 109 mmol/L (98-107); CREATININE 0.48 mg/dL (0.55-1.02)
[2020-11-08 05:11] LABS: MEAN CORPUSCULAR HEMOGLOBIN 23.8 pg (27.0-34.8); MEAN CORPUSCULAR HGB CONC 31.3 g/dL (32.4-35.8); MEAN PLATELET VOLUME 7.6 fL (7.4-10.4); PLATELET COUNT 508 x10^3/uL (130-400); RED BLOOD COUNT 4.76 x10^6/uL (3.82-5.3); RED CELL DISTRIBUTION WIDTH 25.2 % (9.6-15.2)
[2020-11-08 05:51] LABS: MD YES
[2020-11-08 05:53] LABS: <PLATELET ESTIMATE> INCREASED; <PLT MORPHOLOGY> NORMAL PLT MORPH; ANISOCYTOSIS 1+; EOS#(MANUAL) 0.17 x10^3/uL (0.0-0.4); EOS% (MANUAL) 1 % (1-7); HYPOCHROMIA 1+; LYMPH#(MANUAL) 1.36 x10^3/uL (1-3.4); LYMPHS% (MANUAL) 8 % (22-44); MICROCYTOSIS 1+; MONOS#(MANUAL) 0.85 x10^3/uL (0.3-2.7); MONOS% (MANUAL) 5 % (2-9); MYELOCYTES# (MANUAL) 0.34 x10^3/uL (0-0); MYELOCYTES% (MANUAL) 2 % (0-0); OVALOCYTES 1+; POLYCHROMASIA 1+; SEG#(MANUAL) 14.28 x10^3/uL (1.8-6.8); SEGS% (MANUAL) 84 % (42-75)
[2020-11-08] MEDS: ENOXAPARIN 40 MG/0.4 ML SQ SCH (06:29)
[2020-11-08] MEDS: SIMETHICONE 80 MG CHEW TAB PO PRN ×3 (06:36→23:10)
[2020-11-08 06:55] VITALS: BP 97/62
[2020-11-08] MEDS: SODIUM CHLORIDE FLUSH 10ML SYR IVF SCH ×2 (09:30→23:10)
[2020-11-08 12:56] VITALS: BP 114/76
[2020-11-08] MEDS ORDERED: SMOF TPN IV SCH (17:00)
[2020-11-08] MEDS ORDERED: FAT EMUL IV SCH (17:00)
[2020-11-08] MEDS ORDERED: AMINO ACID 10% IV SCH (17:00)
[2020-11-08] MEDS ORDERED: DEXTROSE 70% IV SCH (17:00)
[2020-11-08] MEDS ORDERED: [UNRECOGNIZED DRUG - OTHER] IV SCH (17:00)
[2020-11-08] MEDS ORDERED: FILTER, DISP 1.2 MICRON FOR TPN/PVN IV PRN (17:00)
[2020-11-08] MEDS: D5%-0.45% NACL 1,000 ML IV SCH (17:10)
[2020-11-08 18:57] VITALS: BP 136/73
[2020-11-08 19:26] VITALS: BP 122/75
[2020-11-08] MEDS: DIPHENHYDRAMINE 25 MG CAPSULE PO PRN ×2 (20:12→21:17)
[2020-11-09 01:16] VITALS: BP 121/76
[2020-11-09] MEDS: ONDANSETRON 2MG/ML, 2ML IV PRN (01:19)
[2020-11-09] MEDS: AMOXICILLIN/CLAV 875-125MG TABLET PO SCH (04:42)
[2020-11-09] MEDS ORDERED: PROMETHAZINE 25 MG/ML, 1ML IM PRN (05:00)
[2020-11-09] MEDS: ENOXAPARIN 40 MG/0.4 ML SQ SCH (05:21)
[2020-11-09 05:41] LABS: BASOPHILS % (AUTO) 1 % (0-1); EOSINOPHILS % (AUTO) 1 % (1-7); LYMPHOCYTES % (AUTO) 8 % (22-44); MEAN CORPUSCULAR HEMOGLOBIN 24.4 pg (27.0-34.8); MEAN CORPUSCULAR HGB CONC 32.1 g/dL (32.4-35.8); MEAN PLATELET VOLUME 7.7 fL (7.4-10.4); MONOCYTES % (AUTO) 8 % (2-9); NEUTROPHILS % (AUTO) 83 % (42-75); PLATELET COUNT 527 x10^3/uL (130-400); RED BLOOD COUNT 4.65 x10^6/uL (3.82-5.3); RED CELL DISTRIBUTION WIDTH 24.5 % (9.6-15.2)
[2020-11-09 05:57] LABS: ANION GAP 7 mmol/L (5-15); CALCIUM 8.5 mg/dL (8.5-10.1); CHLORIDE 106 mmol/L (98-107); CREATININE 0.48 mg/dL (0.55-1.02)
[2020-11-09 06:04] LABS: MD SCAN
[2020-11-09 07:23] VITALS: BP 113/73
[2020-11-09] MEDS: ERTAPENEM 1 GM in SODIUM CHLORIDE 0.9% 50 ML IV SCH (09:33)
[2020-11-09] MEDS: SODIUM CHLORIDE FLUSH 10ML SYR IVF SCH (09:34)
[2020-11-09 13:01] VITALS: BP 110/65
[2020-11-09] MEDS: SIMETHICONE 80 MG CHEW TAB PO PRN (14:04)
[2020-11-09] MEDS ORDERED: AMINO ACID 10% IV SCH (17:00)
[2020-11-09] MEDS ORDERED: FILTER, DISP 1.2 MICRON FOR TPN/PVN IV PRN (17:00)
[2020-11-09] MEDS ORDERED: FAT EMUL IV SCH (17:00)
[2020-11-09] MEDS ORDERED: DEXTROSE 70% IV SCH (17:00)
[2020-11-09] MEDS ORDERED: [UNRECOGNIZED DRUG - OTHER] IV SCH (17:00)
[2020-11-09] MEDS ORDERED: SMOF TPN IV SCH (17:00)
[2020-11-09 19:39] VITALS: BP 104/66
[2020-11-09] MEDS: D5%-0.45% NACL 1,000 ML IV SCH (20:37)
[2020-11-10 01:27] VITALS: BP 99/61
[2020-11-10] MEDS: SODIUM CHLORIDE FLUSH 10ML SYR IVF SCH ×2 (05:40→08:43)
[2020-11-10] MEDS: ENOXAPARIN 40 MG/0.4 ML SQ SCH (05:41)
[2020-11-10 06:24] LABS: BASOPHILS % (AUTO) 1 % (0-1); EOSINOPHILS % (AUTO) 2 % (1-7); LYMPHOCYTES % (AUTO) 13 % (22-44); MEAN CORPUSCULAR HEMOGLOBIN 24.3 pg (27.0-34.8); MEAN CORPUSCULAR HGB CONC 32.1 g/dL (32.4-35.8); MEAN PLATELET VOLUME 7.7 fL (7.4-10.4); MONOCYTES % (AUTO) 9 % (2-9); NEUTROPHILS % (AUTO) 75 % (42-75); PLATELET COUNT 496 x10^3/uL (130-400); RED BLOOD COUNT 4.31 x10^6/uL (3.82-5.3); RED CELL DISTRIBUTION WIDTH 24.4 % (9.6-15.2)
[2020-11-10 06:26] LABS: ALBUMIN 2.1 g/dL (3.4-5.0); CALCIUM 8.3 mg/dL (8.5-10.1); CHLORIDE 104 mmol/L (98-107)
[2020-11-10 06:32] LABS: ALANINE AMINOTRANSFERASE 23 U/L (12-78); ALKALINE PHOSPHATASE 137 U/L (45-117); ANION GAP 6 mmol/L (5-15); BILIRUBIN,TOTAL 0.6 mg/dL (0.2-1.0); CREATININE 0.52 mg/dL (0.55-1.02); TOTAL PROTEIN 5.6 g/dL (6.4-8.2)
[2020-11-10 07:30] LABS: MD SCAN
[2020-11-10 07:40] VITALS: BP 103/59
[2020-11-10] MEDS: ERTAPENEM 1 GM in SODIUM CHLORIDE 0.9% 50 ML IV SCH (08:39)
[2020-11-10] MEDS ORDERED: OXYcodone/APAP 5/325MG TABLET PO PRN (09:00)
[2020-11-10] MEDS ORDERED: AMOXICILLIN/CLAV 875-125MG TABLET PO SCH (11:30)
[2020-11-10 13:05] VITALS: BP 104/67
[2020-11-10] MEDS ORDERED: AMINO ACID 10% IV SCH (17:00)
[2020-11-10] MEDS ORDERED: FAT EMUL IV SCH (17:00)
[2020-11-10] MEDS ORDERED: DEXTROSE 70% IV SCH (17:00)
[2020-11-10] MEDS ORDERED: SMOF TPN IV SCH (17:00)
[2020-11-10] MEDS ORDERED: [UNRECOGNIZED DRUG - OTHER] IV SCH (17:00)
== END 2020-11-10 14:45 | disposition home or self-care (01) | DRG 853 ==
LOC: ED 12:18 → EDIP 14:41 → 4NW 15:30
PROVIDERS: ADMIT Internal Medicine; ATTEND Family Medicine
PROC: 0DB58ZX Excision of Esophagus, Via Natural or Artificial Opening Endoscopic, Diagnostic (ICD-10-PCS; 2020-10-29)
PROC: 0DBN8ZX Excision of Sigmoid Colon, Via Natural or Artificial Opening Endoscopic, Diagnostic (ICD-10-PCS; 2020-10-29)
PROC: 0DTJ0ZZ Resection of Appendix, Open Approach (ICD-10-PCS; 2020-10-30)
PROC: 0TN70ZZ Release Left Ureter, Open Approach (ICD-10-PCS; 2020-10-30)
PROC: 0UT10ZZ Resection of Left Ovary, Open Approach (ICD-10-PCS; 2020-10-30)
PROC: 0D1N0Z4 Bypass Sigmoid Colon to Cutaneous, Open Approach (ICD-10-PCS; principal; 2020-10-30 14:45)
PROC: 02HV33Z Insertion of Infusion Device into Superior Vena Cava, Percutaneous Approach (ICD-10-PCS; 2020-10-31)
PROC: B5181ZA Fluoroscopy of Superior Vena Cava using Low Osmolar Contrast, Guidance (ICD-10-PCS; 2020-10-31)
PROC: B548ZZA Ultrasonography of Superior Vena Cava, Guidance (ICD-10-PCS; 2020-10-31)
DX: A41.9 Sepsis, unspecified organism (principal); E43 Unspecified severe protein-calorie malnutrition; K63.1 Perforation of intestine (nontraumatic); A04.72 Enterocolitis due to Clostridium difficile, not specified as recurrent; C18.7 Malignant neoplasm of sigmoid colon; C77.2 Secondary and unspecified malignant neoplasm of intra-abdominal lymph nodes; C78.7 Secondary malignant neoplasm of liver and intrahepatic bile duct; Z68.1 Body mass index [BMI] 19.9 or less, adult; K35.20 Acute appendicitis with generalized peritonitis, without abscess; D50.9 Iron deficiency anemia, unspecified; E16.2 Hypoglycemia, unspecified; Z88.6 Allergy status to analgesic agent; Z88.8 Allergy status to other drugs, medicaments and biological substances; Z87.440 Personal history of urinary (tract) infections; K44.9 Diaphragmatic hernia without obstruction or gangrene; K22.70 Barrett's esophagus without dysplasia; E87.6 Hypokalemia; K21.00 Gastro-esophageal reflux disease with esophagitis, without bleeding
CPT/HCPCS: 36415; 74018; 87806; 96361; 96374; 96375; 96376; 99285; J3370; J3475; J7042; 36430; 36573; 71260; 74177; 80048; 80053; 80076; 81001; 81003; 81025; 82105; 82330; 82378; 82607; 82728; 82803; 82947; 82962; 83540; 83550; 83690; 83735; 84100; 84132; 84134; 84295; 84443; 84478; 85014; 85018; 85025; 85045; 86850; 86900; 86923; 87015; 87040; 87070; 87075; 87077; 87086; 87102; 87116; 87186; 87205; 87206; 87324; 87493; 88304; 88305; 88309; C1729; G0378; J0610; J1170; J1335; J1650; J1885; J2250; J2270; J2405; J2543; J2550; J2704; J3010; J3480; P9045; Q9967; C1751; C1765; G0475; J2370; J3420; J7030; J7040; J7120; P9016; Q0163

== ENCOUNTER 2020-11-23 08:54 | Outpatient (CLI) | payer MEDICAID ==
[2020-11-23] MEDS ORDERED: OMNIPAQUE 350 MG/ML, 100ML BOTTLE ONE (10:06)
== END 2020-11-23 23:59 | disposition home or self-care (01) ==
LOC: RAD 08:54
PROVIDERS: ATTEND Internal Medicine Infectious Disease
DX: K76.89 Other specified diseases of liver (principal); K80.20 Calculus of gallbladder without cholecystitis without obstruction
CPT/HCPCS: 74177; Q9967

== ENCOUNTER 2021-02-01 03:38 | Inpatient (IN) | payer MEDICAID ==
[~2021-02-01] VITALS: Ht 180.3 cm; Wt 46.0 kg
[2021-02-01] MEDS ORDERED: HYDROmorphone 1 MG/ML, 1ML INJ IV ONE (04:00)
[2021-02-01] MEDS ORDERED: ONDANSETRON 2MG/ML, 2ML IVPush ONE (04:00)
[2021-02-01] MEDS ORDERED: SODIUM CHLORIDE 0.9% 1,000ML IVBOLUS ONE (04:00)
[2021-02-01] MEDS ORDERED: ONDANSETRON 2MG/ML, 2ML ONE (04:05)
[2021-02-01] MEDS ORDERED: HYDROmorphone 1 MG/ML, 1ML INJ ONE (04:05)
--- NOTE | 2021-02-01 04:10 | NUR ---
INITIAL PT CONTACT. PT PRESENTS TO ED C/O ABD PAIN, CRAMPING AND DECREASED OSTOMY OUTPUT X1 DAY. PT HAS HX OF SAME AND HX OF COLORECTAL CANCER. PT TEARFUL IN ROOM, ERP AT BEDSIDE. WILL MEDICATE PER EMAR. PT SUPINE ON GURNEY, VSS. PT PLACED IN GOWN, CONINUOUS MONITORING IN PLACE, WILL CONTINUE TO MONITOR.
[2021-02-01 04:21] LABS: BASOPHILS % (AUTO) 1 % (0-1); EOSINOPHILS % (AUTO) 1 % (1-7); LYMPHOCYTES % (AUTO) 16 % (22-44); MEAN CORPUSCULAR HEMOGLOBIN 27.8 pg (27.0-34.8); MEAN CORPUSCULAR HGB CONC 33.7 g/dL (32.4-35.8); MEAN PLATELET VOLUME 7.6 fL (7.4-10.4); MONOCYTES % (AUTO) 8 % (2-9); NEUTROPHILS % (AUTO) 74 % (42-75); PLATELET COUNT 485 x10^3/uL (130-400); RED BLOOD COUNT 4.65 x10^6/uL (3.82-5.3); RED CELL DISTRIBUTION WIDTH 16.8 % (9.6-15.2)
[2021-02-01 04:28] LABS: ALANINE AMINOTRANSFERASE 27 U/L (12-78); ALBUMIN 3.8 g/dL (3.4-5.0); ANION GAP 8 mmol/L (5-15); CALCIUM 9.9 mg/dL (8.5-10.1); CHLORIDE 104 mmol/L (98-107); CREATININE 1.23 mg/dL (0.55-1.02)
[2021-02-01 04:33] LABS: ALKALINE PHOSPHATASE 236 U/L (45-117); BILIRUBIN,TOTAL 0.5 mg/dL (0.2-1.0); TOTAL PROTEIN 7.4 g/dL (6.4-8.2); TROPONIN I < 0.015 ng/mL (0.000-0.045)
[2021-02-01 05:01] LABS: MD SCAN
--- NOTE | 2021-02-01 05:03 | NUR ---
PT SUPINE ON GURNEY. PT STATES SHE IS UNABLE TO PROVIDE URINE SAMPLE AT THIS TIME. PT REPORTS "LITTLE TO NO PAIN" FOLLOWING CONTACT ACID PLANT OPERATOR. PT DENIES ANY NEEDS A THIS TIME. CALL LIGHT AND BELONGINGS WITHIN REACH.
--- NOTE | 2021-02-01 05:09 | NUR ---
PT RETURNED FROM IMAGING
[2021-02-01] MEDS ORDERED: OMNIPAQUE 350 MG/ML, 100ML BOTTLE ONE (05:14)
[2021-02-01 05:29] LABS: MICROSCOPIC NOT IND
--- NOTE | 2021-02-01 07:20 | NUR ---
ASSUMED CARE OF PT. PT STATES PAIN HAD BEEN 0/10 AFTER MEDICATED WITH DILAUDID AND CURRENTLY COMING BACK AT 4/10. PT STATES THAT SHE HAD LOW BACK PAIN YESTERDAY AND THEN THROUGH THE NIGHT ABDOMINAL PAIN WITH VOMITING. PT AWARE OF INTENTION TO ADMIT. UOB TO BATHROOM
--- NOTE | 2021-02-01 08:43 | NUR ---
REPORT TO JORDON ZHAO. PT TO BE TRANSFERRED TO FLOOR
[2021-02-01 09:43] VITALS: BP 144/72
[2021-02-01] MEDS: HYDROmorphone 1 MG/ML, 1ML INJ IV PRN ×4 (10:16→22:03)
[2021-02-01] MEDS ORDERED: hydrALAzine 20 MG/ML, 1ML IVPush PRN (13:00)
[2021-02-01] MEDS ORDERED: MELATONIN 5 MG TABLET PO PRN (13:00)
[2021-02-01] MEDS ORDERED: ONDANSETRON ODT 4 MG PO PRN (13:00)
[2021-02-01] MEDS ORDERED: ACETAMINOPHEN 325 MG TABLET PO PRN (13:00)
[2021-02-01] MEDS ORDERED: HYDROmorphone 2 MG/ML, 1ML IVPush PRN (13:00)
[2021-02-01] MEDS ORDERED: ONDANSETRON 2MG/ML, 2ML IVPush PRN (13:00)
[2021-02-01 14:25] VITALS: BP 133/83
[2021-02-01] MEDS: POTASSIUM CHLORIDE 10 MEQ in D5%-LACTATED RINGERS 1,000 ML IV SCH (14:41)
[2021-02-01 20:28] VITALS: BP 127/75
[2021-02-01] MEDS: FAMOTIDINE 20 MG TABLET PO SCH (21:00)
[2021-02-01] MEDS: POLYETHYLENE GLYCOL 17 GM PACKET PO SCH (21:23)
[2021-02-02 00:59] VITALS: BP 112/65
[2021-02-02] MEDS: HYDROmorphone 1 MG/ML, 1ML INJ IV PRN ×3 (01:21→09:28)
[2021-02-02] MEDS: POTASSIUM CHLORIDE 10 MEQ in D5%-LACTATED RINGERS 1,000 ML IV SCH ×2 (01:37→16:08)
[2021-02-02 05:36] LABS: BASOPHILS % (AUTO) 1 % (0-1); EOSINOPHILS % (AUTO) 3 % (1-7); LYMPHOCYTES % (AUTO) 18 % (22-44); MEAN CORPUSCULAR HEMOGLOBIN 28.1 pg (27.0-34.8); MEAN CORPUSCULAR HGB CONC 33.3 g/dL (32.4-35.8); MEAN PLATELET VOLUME 7.6 fL (7.4-10.4); MONOCYTES % (AUTO) 11 % (2-9); NEUTROPHILS % (AUTO) 66 % (42-75); PLATELET COUNT 395 x10^3/uL (130-400); RED BLOOD COUNT 4.34 x10^6/uL (3.82-5.3); RED CELL DISTRIBUTION WIDTH 16.7 % (9.6-15.2)
[2021-02-02 05:37] LABS: ALANINE AMINOTRANSFERASE 19 U/L (12-78); ANION GAP 4 mmol/L (5-15); CALCIUM 8.7 mg/dL (8.5-10.1); CHLORIDE 107 mmol/L (98-107)
[2021-02-02 05:45] LABS: ALKALINE PHOSPHATASE 183 U/L (45-117); BILIRUBIN,TOTAL 0.3 mg/dL (0.2-1.0); TOTAL PROTEIN 6.2 g/dL (6.4-8.2)
[2021-02-02 06:18] LABS: MD SCAN
[2021-02-02 07:33] VITALS: BP 112/67
[2021-02-02] MEDS: POLYETHYLENE GLYCOL 17 GM PACKET PO SCH ×2 (08:34→22:06)
[2021-02-02] MEDS: FAMOTIDINE 20 MG TABLET PO SCH (08:34)
[2021-02-02] MEDS ORDERED: FENTANYL PF 100 MCG/2ML ONE (11:15)
[2021-02-02] MEDS ORDERED: MIDAZOLAM 1 MG/ML, 5ML ONE (11:15)
[2021-02-02] MEDS ORDERED: NALOXONE 1 MG/ML, 2ML ONE (11:16)
[2021-02-02] MEDS ORDERED: FLUMAZENIL 0.1 MG/1 ML, 5ML ONE (11:16)
[2021-02-02] MEDS ORDERED: LIDOCAINE 1%, 10ML ONE (12:00)
[2021-02-02 13:51] VITALS: BP 137/83
[2021-02-02] MEDS: OXYcodone IR 5MG TABLET PO PRN ×3 (14:35→22:07)
[2021-02-02] MEDS ORDERED: FLUCONAZOLE 100 MG TABLET PO ONE (16:00)
[2021-02-02 20:11] VITALS: BP 150/84
[2021-02-02] MEDS ORDERED: FAMOTIDINE 20 MG TABLET PO SCH (21:00)
[2021-02-03 00:59] VITALS: BP 120/73
[2021-02-03] MEDS: POTASSIUM CHLORIDE 10 MEQ in D5%-LACTATED RINGERS 1,000 ML IV SCH ×2 (01:00→11:03)
[2021-02-03 04:35] VITALS: BP 159/92
[2021-02-03] MEDS: OXYcodone IR 5MG TABLET PO PRN ×2 (04:49→09:54)
[2021-02-03 05:47] LABS: BASOPHILS % (AUTO) 1 % (0-1); EOSINOPHILS % (AUTO) 3 % (1-7); LYMPHOCYTES % (AUTO) 18 % (22-44); MEAN CORPUSCULAR HEMOGLOBIN 28.3 pg (27.0-34.8); MEAN CORPUSCULAR HGB CONC 32.9 g/dL (32.4-35.8); MEAN PLATELET VOLUME 7.9 fL (7.4-10.4); MONOCYTES % (AUTO) 12 % (2-9); NEUTROPHILS % (AUTO) 67 % (42-75); PLATELET COUNT 422 x10^3/uL (130-400); RED BLOOD COUNT 4.32 x10^6/uL (3.82-5.3); RED CELL DISTRIBUTION WIDTH 15.2 % (9.6-15.2)
[2021-02-03 05:58] LABS: CALCIUM 8.8 mg/dL (8.5-10.1); CHLORIDE 106 mmol/L (98-107)
[2021-02-03 06:03] LABS: ALANINE AMINOTRANSFERASE 20 U/L (12-78); ALBUMIN 3.1 g/dL (3.4-5.0); ALKALINE PHOSPHATASE 174 U/L (45-117); ANION GAP 4 mmol/L (5-15); BILIRUBIN,TOTAL 0.2 mg/dL (0.2-1.0); CREATININE 1.13 mg/dL (0.55-1.02); TOTAL PROTEIN 6.5 g/dL (6.4-8.2)
[2021-02-03 06:24] LABS: MD SCAN
[2021-02-03 07:52] VITALS: BP 87/61
[2021-02-03] MEDS: POLYETHYLENE GLYCOL 17 GM PACKET PO SCH (09:47)
[2021-02-03] MEDS ORDERED: ONDA4TAB13 PO (12:03)
[2021-02-03] MEDS ORDERED: OXYC5TAB98 PO (12:03)
[2021-02-03] MEDS ORDERED: POLY17PO5 PO (12:03)
[2021-02-03 12:24] VITALS: BP 134/81
[2021-02-03] MEDS ORDERED: SODIUM CHLORIDE 0.9% 500 ML IV SCH (13:00)
[2021-02-03 13:40] VITALS: BP 147/78
== END 2021-02-03 15:20 | disposition home or self-care (01) | DRG 694 ==
LOC: ED 07:04 → EDIP 07:51 → 4NE 08:55
PROVIDERS: ADMIT Internal Medicine; ATTEND Internal Medicine
PROC: 0WBH3ZX Excision of Retroperitoneum, Percutaneous Approach, Diagnostic (ICD-10-PCS; principal; 2021-02-02)
PROC: 0T9430Z Drainage of Left Kidney Pelvis with Drainage Device, Percutaneous Approach (ICD-10-PCS; 2021-02-02)
PROC: BT121ZZ Fluoroscopy of Left Kidney using Low Osmolar Contrast (ICD-10-PCS; 2021-02-02)
PROC: BT42ZZZ Ultrasonography of Left Kidney (ICD-10-PCS; 2021-02-02)
DX: N13.1 Hydronephrosis with ureteral stricture, not elsewhere classified (principal); N17.9 Acute kidney failure, unspecified; E87.6 Hypokalemia; D47.3 Essential (hemorrhagic) thrombocythemia; Z20.822 Contact with and (suspected) exposure to COVID-19; K59.00 Constipation, unspecified; Z80.0 Family history of malignant neoplasm of digestive organs; Z85.048 Personal history of other malignant neoplasm of rectum, rectosigmoid junction, and anus; Z87.891 Personal history of nicotine dependence; Z90.721 Acquired absence of ovaries, unilateral; Z93.6 Other artificial openings of urinary tract status; Z90.49 Acquired absence of other specified parts of digestive tract; Z93.3 Colostomy status; Z88.5 Allergy status to narcotic agent; Z88.8 Allergy status to other drugs, medicaments and biological substances
CPT/HCPCS: 36415; 50432; 96361; 96374; 96375; 99285; J3490; J7121; 74177; 76942; 77012; 80053; 81003; 83690; 83735; 84100; 84443; 84484; 84703; 85025; 87635; 88305; 99156; 99157; C1894; G0378; J1170; J2250; J2405; J3010; J3480; Q9967; C1729; J2310; J7030

== ENCOUNTER 2021-02-13 19:29 | Emergency (ER) | payer MEDICAID ==
[~2021-02-13] VITALS: Ht 180.3 cm; Wt 47.3 kg
[~2021-02-13 19:29] MED LIST: ONDA4TAB13 PO; OXYC5TAB98 PO; POLY17PO5 PO
--- NOTE | 2021-02-13 20:21 | NUR ---
PT STATES HAD NEPHROSTOMY TUBE PLACED ON L SIDE, ON 02/02/21. YESTERDAY AROUNG 1600 DULL THROB STARTED TO HURT AFTER SWEEPING AND CLEANING OUTSIDE. NO OUTPUT AFTER MIDNIGHT. PT STATE PAIN NOW IS THROBBING, SHARP, ACHE, STINGGING. TENDER AT SITE AND PAIN RADIATES INTO L HIP 06/04.
--- NOTE | 2021-02-13 20:42 | NUR ---
KIA DALEY WAS DIAGNOSED WITH CHOLORECTAL CA ON 10/28/20, A CHOLOSTOMY AFTER TAKING OUT LOWER SIGMOID COLON 3 FEET" KIA DALEY HASN'T BEEN ABLE TO SLEEP SINCE YESTERDAY AFTERNOON FROM PAIN OF NEPHROSTOMY ON L SIDE.
--- NOTE | 2021-02-13 20:56 | NUR ---
TYLENOL 600MG, AND ZOFRAN PRIOR TO ARRIVING AT HOSPITAL.
[2021-02-13] MEDS ORDERED: ONDANSETRON 2MG/ML, 2ML IVPush ONE (21:30)
[2021-02-13] MEDS ORDERED: SODIUM CHLORIDE FLUSH 10ML SYR IVF ONE (21:30)
[2021-02-13] MEDS ORDERED: ONDANSETRON 2MG/ML, 2ML ONE (22:13)
[2021-02-13] MEDS ORDERED: HYDROmorphone 1 MG/ML, 1ML INJ ONE ×2 (22:13→23:40)
[2021-02-13 22:19] LABS: BASOPHILS % (AUTO) 1 % (0-1); EOSINOPHILS % (AUTO) 3 % (1-7); LYMPHOCYTES % (AUTO) 20 % (22-44); MEAN CORPUSCULAR HEMOGLOBIN 28.5 pg (27.0-34.8); MEAN CORPUSCULAR HGB CONC 33.4 g/dL (32.4-35.8); MEAN PLATELET VOLUME 8.3 fL (7.4-10.4); MONOCYTES % (AUTO) 10 % (2-9); NEUTROPHILS % (AUTO) 66 % (42-75); PLATELET COUNT 342 x10^3/uL (130-400); RED BLOOD COUNT 4.15 x10^6/uL (3.82-5.3); RED CELL DISTRIBUTION WIDTH 13.7 % (9.6-15.2)
[2021-02-13 22:20] LABS: MD NO
[2021-02-13] MEDS: HYDROmorphone 1 MG/ML, 1ML INJ IVPush PRN ×2 (22:23→23:44)
[2021-02-13 22:24] LABS: ALANINE AMINOTRANSFERASE 19 U/L (12-78); ALBUMIN 3.3 g/dL (3.4-5.0); ANION GAP 8 mmol/L (5-15); CALCIUM 8.6 mg/dL (8.5-10.1); CHLORIDE 110 mmol/L (98-107); CREATININE 1.18 mg/dL (0.55-1.02)
[2021-02-13 22:26] LABS: ALKALINE PHOSPHATASE 126 U/L (45-117); BILIRUBIN,TOTAL 0.2 mg/dL (0.2-1.0); TOTAL PROTEIN 6.6 g/dL (6.4-8.2)
--- NOTE | 2021-02-13 22:27 | NUR ---
IV established; pain meds admin per dec. US called to inform that patient ready.
--- NOTE | 2021-02-13 22:37 | NUR ---
US at bedside.
[2021-02-13 23:44] VITALS: BP 132/77
--- NOTE | 2021-02-13 23:48 | NUR ---
Patient c/o increased pain. 02/02. Medicated patient per dec.
[2021-02-13 23:54] LABS: MICROSCOPIC INDICATED
--- NOTE | 2021-02-14 01:31 | NUR ---
Discharge instructions given. All questions and concerns addressed. Patient ambulatory with a steady gait. Belongings with patient.
== END 2021-02-14 01:33 | disposition home or self-care (01) ==
LOC: ED 20:59
DX: R10.9 Unspecified abdominal pain (principal); R11.0 Nausea; Z90.89 Acquired absence of other organs
CPT/HCPCS: 36415; 74018; 76770; 80053; 81001; 85025; 96374; 96375; 96376; 99285; J1170; J2405

== ENCOUNTER 2021-02-15 06:19 | Inpatient (IN) | payer MEDICAID ==
[~2021-02-15] VITALS: Ht 180.3 cm; Wt 46.6 kg
--- NOTE | 2021-02-15 06:46 | NUR ---
REPORT FROM CECE MALDONADO FOR TRANSFER OF PATIENT CARE.
[2021-02-15] MEDS ORDERED: ONDANSETRON 2MG/ML, 2ML ONE (06:50)
[2021-02-15] MEDS ORDERED: MORPHINE SULFATE 4 MG/ML, 1ML ONE (06:50)
--- NOTE | 2021-02-15 06:59 | NUR ---
pt came into ed this am for no longer producing bowel in her ostomy bag, states it has been x2days. also reports abdominal tenderness and discomfort in her left nephrostomy tube that was placed 10 days ago. pt rolling around on gurney d/t pain, pt reports dry heaving but no emesis episodes. pt reports keeping down fluid despite nausea. nad, placed on spo2/bp monitoring at this time. report to Alphonso ZHAO, pt care transferred at this time.
[2021-02-15] MEDS ORDERED: ONDANSETRON 2MG/ML, 2ML IVPush ONE (07:00)
[2021-02-15] MEDS ORDERED: MORPHINE SULFATE 4 MG/ML, 1ML IVPush PRN (07:00)
[2021-02-15] MEDS ORDERED: SODIUM CHLORIDE FLUSH 10ML SYR IVF ONE (07:00)
[2021-02-15] MEDS ORDERED: SODIUM CHLORIDE 0.9% 1,000ML IVBOLUS ONE (07:00)
--- NOTE | 2021-02-15 07:02 | NUR ---
PATIENT TO IMAGING.
[2021-02-15 07:14] LABS: ALANINE AMINOTRANSFERASE 23 U/L (12-78); ALBUMIN 3.6 g/dL (3.4-5.0); ANION GAP 6 mmol/L (5-15); CALCIUM 11.1 mg/dL (8.5-10.1); CHLORIDE 105 mmol/L (98-107); CREATININE 1.24 mg/dL (0.55-1.02)
[2021-02-15 07:16] LABS: ALKALINE PHOSPHATASE 149 U/L (45-117); BILIRUBIN,TOTAL 0.5 mg/dL (0.2-1.0); TOTAL PROTEIN 7.5 g/dL (6.4-8.2)
[2021-02-15 07:43] LABS: BASOPHILS % (AUTO) 1 % (0-1); EOSINOPHILS % (AUTO) 2 % (1-7); LYMPHOCYTES % (AUTO) 17 % (22-44); MEAN CORPUSCULAR HEMOGLOBIN 28.5 pg (27.0-34.8); MEAN CORPUSCULAR HGB CONC 33.3 g/dL (32.4-35.8); MEAN PLATELET VOLUME 7.7 fL (7.4-10.4); MONOCYTES % (AUTO) 11 % (2-9); NEUTROPHILS % (AUTO) 69 % (42-75); PLATELET COUNT 367 x10^3/uL (130-400); RED BLOOD COUNT 4.69 x10^6/uL (3.82-5.3); RED CELL DISTRIBUTION WIDTH 13.8 % (9.6-15.2)
[2021-02-15 07:44] LABS: MD NO
--- NOTE | 2021-02-15 07:45 | NUR ---
Sabrina adames in [facility] - 02/15/21 at 0835 by [email or web address] LATE ENTRY DUE TO PATIENT CARE: ADRIANAD DOES NOT WANT NEBULIZER TREATMENT AT THIS TIME DUE TO PATIENT'S HIGH HEART RATE AND PATIENT RECEIVED NEBULIZER TREATMENT IN AMBULANCE.
--- NOTE | 2021-02-15 07:48 | NUR ---
PATIENT MEDICATED PER eMAR, VSS, CALL LIGHT WITHIN REACH.
--- NOTE | 2021-02-15 08:39 | NUR ---
PATIENT RESTING IN GURNEY WITH EYES CLOSED, RESP EVEN AND UNLABORED, VSS, CALL LIGHT WITHIN REACH. WAITING FOR CT RESULTS.
[2021-02-15] MEDS ORDERED: OMNIPAQUE 350 MG/ML, 100ML BOTTLE ONE (08:44)
--- NOTE | 2021-02-15 09:49 | NUR ---
REPORT GIVEN TO CECE BANSAL FOR TRANSFER OF PATIENT CARE.
--- NOTE | 2021-02-15 09:56 | NUR ---
PATIENT TRANSFERRED IN STABLE CONDITION TO MEDICAL/ONCOLOGY [facility]IA [facility] WITH SHOWROOM MANAGER, ALL PATIENT BELONGINGS TAKEN TO FLOOR WITH PATIENT.
[2021-02-15] MEDS ORDERED: BUTALB/APAP/CAFFEINE 50MG/325MG/40MG PO PRN (10:00)
[2021-02-15] MEDS ORDERED: hydrALAzine 20 MG/ML, 1ML IVPush PRN (10:00)
[2021-02-15] MEDS ORDERED: BACLOFEN 10 MG TABLET PO PRN (10:00)
[2021-02-15] MEDS ORDERED: ENALAPRILAT 1.25 MG/ML, 2ML IVPush PRN (10:00)
[2021-02-15 10:33] VITALS: BP 129/81
[2021-02-15] MEDS: D5%-0.45NACL+KCL 20MEQ 1,000 ML IV SCH (10:53)
[2021-02-15] MEDS: HYDROmorphone 2 MG/ML, 1ML IVPush PRN ×2 (10:59→19:43)
[2021-02-15 14:00] VITALS: BP 122/66
[2021-02-15] MEDS: HYDROcodone/APAP 5/325 TABLET PO PRN (16:27)
[2021-02-15 19:11] VITALS: BP 129/78
[2021-02-15] MEDS: ONDANSETRON 2MG/ML, 2ML IVPush PRN (19:42)
[2021-02-16 02:07] VITALS: BP 121/69
[2021-02-16] MEDS: ONDANSETRON 2MG/ML, 2ML IVPush PRN ×4 (02:14→19:35)
[2021-02-16] MEDS: HYDROmorphone 2 MG/ML, 1ML IVPush PRN ×5 (02:14→21:25)
[2021-02-16 05:38] LABS: BASOPHILS % (AUTO) 1 % (0-1); EOSINOPHILS % (AUTO) 4 % (1-7); LYMPHOCYTES % (AUTO) 11 % (22-44); MEAN CORPUSCULAR HEMOGLOBIN 28.2 pg (27.0-34.8); MEAN CORPUSCULAR HGB CONC 32.6 g/dL (32.4-35.8); MEAN PLATELET VOLUME 7.7 fL (7.4-10.4); MONOCYTES % (AUTO) 9 % (2-9); NEUTROPHILS % (AUTO) 75 % (42-75); PLATELET COUNT 308 x10^3/uL (130-400); RED CELL DISTRIBUTION WIDTH 14.2 % (9.6-15.2)
[2021-02-16 05:43] LABS: MD NO
[2021-02-16 05:48] LABS: ALANINE AMINOTRANSFERASE 20 U/L (12-78); ALBUMIN 3.3 g/dL (3.4-5.0); ANION GAP 5 mmol/L (5-15); CALCIUM 9.1 mg/dL (8.5-10.1); CHLORIDE 108 mmol/L (98-107)
[2021-02-16 05:51] LABS: ALKALINE PHOSPHATASE 123 U/L (45-117); BILIRUBIN,TOTAL 0.4 mg/dL (0.2-1.0); CREATININE 1.04 mg/dL (0.55-1.02); TOTAL PROTEIN 6.7 g/dL (6.4-8.2)
[2021-02-16] MEDS: D5%-0.45NACL+KCL 20MEQ 1,000 ML IV SCH (06:19)
[2021-02-16 06:40] LABS: MICROSCOPIC AUTO
[2021-02-16 06:48] VITALS: BP 92/62
[2021-02-16] MEDS: CEFTRIAXONE 1,000 MG in DEXTROSE 5% 50 ML IVPB SCH (07:49)
[2021-02-16] MEDS: SENNA/DOCUSATE TABLET PO SCH (08:00)
[2021-02-16 12:59] VITALS: BP 108/68
[2021-02-16 19:28] VITALS: BP 127/74
[2021-02-17 02:16] VITALS: BP 101/61
[2021-02-17] MEDS: HYDROmorphone 2 MG/ML, 1ML IVPush PRN ×4 (02:24→20:48)
[2021-02-17] MEDS: ONDANSETRON 2MG/ML, 2ML IVPush PRN (02:29)
[2021-02-17] MEDS: D5%-0.45NACL+KCL 20MEQ 1,000 ML IV SCH (02:29)
[2021-02-17] MEDS: CEFTRIAXONE 1,000 MG in DEXTROSE 5% 50 ML IVPB SCH (07:36)
[2021-02-17] MEDS: SENNA/DOCUSATE TABLET PO SCH (07:38)
[2021-02-17 07:50] VITALS: BP 108/67
[2021-02-17] MEDS ORDERED: TPN PER PHARMACY MC PRN (08:00)
[2021-02-17] MEDS: HYDROcodone/APAP 5/325 TABLET PO PRN (09:26)
[2021-02-17] MEDS ORDERED: LIDOCAINE 1%, 10ML ONE (11:58)
[2021-02-17] MEDS ORDERED: VISIPAQUE 270 MG/ML, 50ML BOTTLE ONE (12:00)
[2021-02-17 14:21] VITALS: BP 120/74
[2021-02-17] MEDS: ONDANSETRON ODT 4 MG PO PRN (17:10)
[2021-02-17 20:01] VITALS: BP 107/66
[2021-02-17] MEDS: MELATONIN 5 MG TABLET PO PRN (20:48)
[2021-02-18] MEDS: D5%-0.45NACL+KCL 20MEQ 1,000 ML IV SCH ×2 (00:25→21:31)
[2021-02-18] MEDS: HYDROmorphone 2 MG/ML, 1ML IVPush PRN ×2 (00:26→21:26)
[2021-02-18 01:02] VITALS: BP 117/72
[2021-02-18] MEDS: HYDROcodone/APAP 5/325 TABLET PO PRN ×3 (05:25→17:34)
[2021-02-18 06:11] LABS: BASOPHILS % (AUTO) 1 % (0-1); EOSINOPHILS % (AUTO) 4 % (1-7); LYMPHOCYTES % (AUTO) 20 % (22-44); MEAN CORPUSCULAR HEMOGLOBIN 28.4 pg (27.0-34.8); MEAN CORPUSCULAR HGB CONC 32.9 g/dL (32.4-35.8); MONOCYTES % (AUTO) 12 % (2-9); NEUTROPHILS % (AUTO) 63 % (42-75); PLATELET COUNT 313 x10^3/uL (130-400); RED BLOOD COUNT 4.27 x10^6/uL (3.82-5.3); RED CELL DISTRIBUTION WIDTH 13.7 % (9.6-15.2)
[2021-02-18 06:15] LABS: MD NO
[2021-02-18 06:19] LABS: CHLORIDE 106 mmol/L (98-107)
[2021-02-18 06:26] LABS: ALANINE AMINOTRANSFERASE 30 U/L (12-78); ALKALINE PHOSPHATASE 160 U/L (45-117); ANION GAP 5 mmol/L (5-15); BILIRUBIN,TOTAL 0.3 mg/dL (0.2-1.0); CALCIUM 8.9 mg/dL (8.5-10.1); CREATININE 0.98 mg/dL (0.55-1.02); TOTAL PROTEIN 6.6 g/dL (6.4-8.2)
[2021-02-18 07:28] VITALS: BP 100/63
[2021-02-18] MEDS: CEFTRIAXONE 1,000 MG in DEXTROSE 5% 50 ML IVPB SCH (08:11)
[2021-02-18] MEDS: SENNA/DOCUSATE TABLET PO SCH (08:11)
[2021-02-18 13:17] VITALS: BP 111/72
[2021-02-18] MEDS: PIPERACILLIN/TAZO 4.5 GM in DEXTROSE 5% 100 ML IVPB SCH ×2 (17:24→23:55)
[2021-02-18 19:50] VITALS: BP 110/66
[2021-02-18] MEDS: MELATONIN 5 MG TABLET PO PRN (21:26)
[2021-02-18] MEDS: ONDANSETRON 2MG/ML, 2ML IVPush PRN (22:04)
[2021-02-19 02:30] VITALS: BP 108/74
[2021-02-19 05:20] LABS: BASOPHILS % (AUTO) 1 % (0-1); EOSINOPHILS % (AUTO) 4 % (1-7); LYMPHOCYTES % (AUTO) 13 % (22-44); MEAN CORPUSCULAR HEMOGLOBIN 28.4 pg (27.0-34.8); MEAN CORPUSCULAR HGB CONC 33.1 g/dL (32.4-35.8); MEAN PLATELET VOLUME 7.7 fL (7.4-10.4); MONOCYTES % (AUTO) 11 % (2-9); NEUTROPHILS % (AUTO) 72 % (42-75); PLATELET COUNT 327 x10^3/uL (130-400); RED BLOOD COUNT 4.26 x10^6/uL (3.82-5.3); RED CELL DISTRIBUTION WIDTH 13.6 % (9.6-15.2)
[2021-02-19] MEDS: PIPERACILLIN/TAZO 4.5 GM in DEXTROSE 5% 100 ML IVPB SCH ×4 (05:32→23:44)
[2021-02-19 05:33] LABS: CHLORIDE 106 mmol/L (98-107)
[2021-02-19 05:40] LABS: MD NO
[2021-02-19 05:42] LABS: ALANINE AMINOTRANSFERASE 46 U/L (12-78); ALKALINE PHOSPHATASE 202 U/L (45-117); ANION GAP 7 mmol/L (5-15); BILIRUBIN,TOTAL 0.3 mg/dL (0.2-1.0); CREATININE 1.01 mg/dL (0.55-1.02); TOTAL PROTEIN 6.5 g/dL (6.4-8.2)
[2021-02-19] MEDS: ONDANSETRON ODT 4 MG PO PRN ×2 (07:25→16:44)
[2021-02-19] MEDS: SENNA/DOCUSATE TABLET PO SCH (07:25)
[2021-02-19 07:27] VITALS: BP 99/63
[2021-02-19] MEDS: ONDANSETRON 2MG/ML, 2ML IVPush PRN ×2 (14:52→20:44)
[2021-02-19 14:56] VITALS: BP 117/84
[2021-02-19] MEDS: D5%-0.45NACL+KCL 20MEQ 1,000 ML IV SCH (17:51)
[2021-02-19] MEDS: PROMETHAZINE 25 MG/ML, 1ML IM PRN ×2 (18:07→21:59)
[2021-02-19 18:55] VITALS: BP 134/74
[2021-02-19] MEDS: MELATONIN 5 MG TABLET PO PRN (20:44)
[2021-02-19] MEDS: HYDROmorphone 2 MG/ML, 1ML IVPush PRN ×2 (20:56→21:59)
[2021-02-20] VITALS (7 sets, daily range): BP systolic 98–135; BP diastolic 58–88
[2021-02-20] MEDS: PIPERACILLIN/TAZO 4.5 GM in DEXTROSE 5% 100 ML IVPB SCH ×3 (05:30→17:45)
[2021-02-20] MEDS: ONDANSETRON ODT 4 MG PO PRN ×2 (05:30→11:28)
[2021-02-20] MEDS: SENNA/DOCUSATE TABLET PO SCH (10:35)
[2021-02-20] MEDS: HYDROmorphone 2 MG/ML, 1ML IVPush PRN ×4 (11:35→20:53)
[2021-02-20] MEDS: D5%-0.45NACL+KCL 20MEQ 1,000 ML IV SCH (13:04)
[2021-02-20] MEDS ORDERED: MIDAZOLAM 1 MG/ML, 5ML ONE (14:10)
[2021-02-20] MEDS ORDERED: FLUMAZENIL 0.1 MG/1 ML, 5ML ONE (14:10)
[2021-02-20] MEDS ORDERED: FENTANYL PF 100 MCG/2ML ONE ×2 (14:10→22:14)
[2021-02-20] MEDS ORDERED: NALOXONE 1 MG/ML, 2ML ONE (14:10)
[2021-02-20] MEDS ORDERED: LIDOCAINE GEL 2%, 5ML ONE (14:13)
[2021-02-20] MEDS ORDERED: LIDOCAINE 1%, 20ML ONE (14:13)
[2021-02-20] MEDS ORDERED: BENZOCAINE 20% SPRAY 0.5ML ONE (14:35)
[2021-02-20] MEDS ORDERED: VISIPAQUE 270 MG/ML, 50ML BOTTLE ONE (15:19)
[2021-02-20] MEDS: HYDROcodone/APAP 5/325 TABLET PO PRN (17:22)
[2021-02-20] MEDS: ONDANSETRON 2MG/ML, 2ML IVPush PRN (18:48)
[2021-02-20 20:43] LABS: BASOPHILS % (AUTO) 1 % (0-1); EOSINOPHILS % (AUTO) 1 % (1-7); LYMPHOCYTES % (AUTO) 9 % (22-44); MEAN CORPUSCULAR HEMOGLOBIN 28.1 pg (27.0-34.8); MEAN PLATELET VOLUME 7.5 fL (7.4-10.4); MONOCYTES % (AUTO) 8 % (2-9); NEUTROPHILS % (AUTO) 81 % (42-75); PLATELET COUNT 439 x10^3/uL (130-400); RED BLOOD COUNT 4.01 x10^6/uL (3.82-5.3); RED CELL DISTRIBUTION WIDTH 13.7 % (9.6-15.2)
[2021-02-20 20:44] LABS: MD NO
[2021-02-20] MEDS ORDERED: PANTOPRAZOLE 80 MG in SODIUM CHLORIDE 0.9% 50 ML IV ONE (21:15)
[2021-02-20] MEDS ORDERED: PROPOFOL 10 MG/ML, 20ML ONE (22:14)
[2021-02-20] MEDS ORDERED: SUCCINYLCHOLINE 20 MG/ML, 10ML ONE (22:14)
[2021-02-20] MEDS ORDERED: ROCURONIUM 10MG/ML,5ML ONE (22:14)
[2021-02-20] MEDS ORDERED: DEXAMETHASONE 4 MG/ML, 5ML ONE (22:27)
[2021-02-20] MEDS ORDERED: LABETALOL 5MG/ML, 20ML IV PRN (22:30)
[2021-02-20] MEDS ORDERED: ONDANSETRON 2MG/ML, 2ML IVPush PRN (22:30)
[2021-02-20] MEDS ORDERED: HYDROmorphone 1 MG/ML, 1ML INJ IVPush PRN (22:30)
[2021-02-20] MEDS ORDERED: hydrALAzine 20 MG/ML, 1ML IV PRN (22:30)
[2021-02-20] MEDS ORDERED: PROMETHAZINE 25 MG/ML, 1ML IVPush PRN (22:30)
[2021-02-20] MEDS ORDERED: FENTANYL PF 100 MCG/2ML IV PRN (22:30)
[2021-02-20] MEDS ORDERED: EPINEPHRINE SYRINGE 0.1 MG/ML, 10ML ONE (22:34)
[2021-02-20] MEDS ORDERED: GLYCOPYRROLATE 0.2MG/1ML, 5ML ONE (22:40)
[2021-02-20] MEDS ORDERED: NEOSTIGMINE 1 MG/ML, 10ML ONE (22:40)
[2021-02-20] MEDS ORDERED: ONDANSETRON 2MG/ML, 2ML ONE (23:12)
[2021-02-20] MEDS: PANTOPRAZOLE 80 MG in SODIUM CHLORIDE 0.9% 100 ML IV SCH (23:50)
[2021-02-21] MEDS: PIPERACILLIN/TAZO 4.5 GM in DEXTROSE 5% 100 ML IVPB SCH ×5 (00:04→23:52)
[2021-02-21 00:13] VITALS: BP 110/67
[2021-02-21] MEDS ORDERED: OMNIPAQUE 350 MG/ML, 100ML BOTTLE ONE (01:09)
[2021-02-21] MEDS: HYDROmorphone 2 MG/ML, 1ML IVPush PRN ×5 (01:26→20:18)
[2021-02-21 02:28] LABS: BASOPHILS % (AUTO) 0 % (0-1); EOSINOPHILS % (AUTO) 0 % (1-7); LYMPHOCYTES % (AUTO) 6 % (22-44); MEAN CORPUSCULAR HEMOGLOBIN 28.6 pg (27.0-34.8); MEAN CORPUSCULAR HGB CONC 33.2 g/dL (32.4-35.8); MEAN PLATELET VOLUME 7.4 fL (7.4-10.4); MONOCYTES % (AUTO) 2 % (2-9); NEUTROPHILS % (AUTO) 92 % (42-75); PLATELET COUNT 370 x10^3/uL (130-400); RED BLOOD COUNT 3.39 x10^6/uL (3.82-5.3); RED CELL DISTRIBUTION WIDTH 13.4 % (9.6-15.2)
[2021-02-21 02:33] LABS: MD SCAN
[2021-02-21 06:26] VITALS: BP 101/63
[2021-02-21] MEDS: SENNA/DOCUSATE TABLET PO SCH (09:18)
[2021-02-21] MEDS: D5%-0.45NACL+KCL 20MEQ 1,000 ML IV SCH (10:50)
[2021-02-21] MEDS: PANTOPRAZOLE 80 MG in SODIUM CHLORIDE 0.9% 100 ML IV SCH ×2 (11:30→21:53)
[2021-02-21 12:12] VITALS: BP 111/71
[2021-02-21] MEDS: ONDANSETRON ODT 4 MG PO PRN (18:45)
[2021-02-21 18:51] VITALS: BP 116/72
[2021-02-21] MEDS: ONDANSETRON 2MG/ML, 2ML IVPush PRN (23:58)
[2021-02-22 01:56] VITALS: BP 126/70
[2021-02-22] MEDS: HYDROmorphone 2 MG/ML, 1ML IVPush PRN ×3 (02:31→13:43)
[2021-02-22] MEDS: PIPERACILLIN/TAZO 4.5 GM in DEXTROSE 5% 100 ML IVPB SCH ×4 (05:14→23:44)
[2021-02-22 06:42] VITALS: BP 109/70
[2021-02-22] MEDS: ONDANSETRON 2MG/ML, 2ML IVPush PRN ×2 (08:32→15:27)
[2021-02-22] MEDS: SENNA/DOCUSATE TABLET PO SCH (09:00)
[2021-02-22] MEDS: PANTOPRAZOLE 80 MG in SODIUM CHLORIDE 0.9% 100 ML IV SCH (11:51)
[2021-02-22 14:14] VITALS: BP 113/63
[2021-02-22] MEDS: D5%-0.45NACL+KCL 20MEQ 1,000 ML IV SCH (15:27)
[2021-02-22] MEDS: PROMETHAZINE 25 MG/ML, 1ML IM PRN (17:57)
[2021-02-22] MEDS ORDERED: LORazepam 1MG TABLET PO ONE (18:00)
[2021-02-22] MEDS ORDERED: LORazepam 2 MG/ML, 1ML ONE (18:18)
[2021-02-22] MEDS ORDERED: LORazepam 2 MG/ML, 1ML IVPush ONE (18:30)
[2021-02-22] MEDS ORDERED: PANTOPRAZOLE 80 MG in SODIUM CHLORIDE 0.9% 100 ML IV SCH (19:00)
[2021-02-22] MEDS ORDERED: PANTOPRAZOLE 80 MG in SODIUM CHLORIDE 0.9% 50 ML IV ONE (19:00)
[2021-02-22 19:17] VITALS: BP 122/72
[2021-02-23 00:03] VITALS: BP 132/82
[2021-02-23] MEDS: HYDROmorphone 2 MG/ML, 1ML IVPush PRN ×5 (00:48→23:02)
[2021-02-23] MEDS: PANTOPRAZOLE 80 MG in SODIUM CHLORIDE 0.9% 100 ML IV SCH ×2 (04:29→17:07)
[2021-02-23] MEDS: PIPERACILLIN/TAZO 4.5 GM in DEXTROSE 5% 100 ML IVPB SCH ×3 (05:14→18:40)
[2021-02-23 05:54] LABS: BASOPHILS % (AUTO) 1 % (0-1); EOSINOPHILS % (AUTO) 3 % (1-7); LYMPHOCYTES % (AUTO) 13 % (22-44); MEAN CORPUSCULAR HEMOGLOBIN 29.5 pg (27.0-34.8); MEAN CORPUSCULAR HGB CONC 34.1 g/dL (32.4-35.8); MEAN PLATELET VOLUME 7.6 fL (7.4-10.4); MONOCYTES % (AUTO) 9 % (2-9); NEUTROPHILS % (AUTO) 74 % (42-75); PLATELET COUNT 387 x10^3/uL (130-400); RED BLOOD COUNT 2.85 x10^6/uL (3.82-5.3); RED CELL DISTRIBUTION WIDTH 13.5 % (9.6-15.2)
[2021-02-23 05:55] LABS: MD NO
[2021-02-23 06:06] LABS: CHLORIDE 103 mmol/L (98-107)
[2021-02-23 06:10] LABS: ANION GAP 6 mmol/L (5-15); CALCIUM 8.1 mg/dL (8.5-10.1); CREATININE 1.28 mg/dL (0.55-1.02)
[2021-02-23 08:15] VITALS: BP 128/75
[2021-02-23] MEDS: SENNA/DOCUSATE TABLET PO SCH (09:00)
[2021-02-23] MEDS: PROMETHAZINE 25 MG/ML, 1ML IM PRN (09:54)
[2021-02-23] MEDS: D5%-0.45NACL+KCL 20MEQ 1,000 ML IV SCH (13:17)
[2021-02-23 13:30] VITALS: BP 139/79
[2021-02-23] MEDS: ONDANSETRON ODT 4 MG PO PRN ×2 (14:32→23:02)
[2021-02-23 15:28] LABS: BASOPHILS % (AUTO) 1 % (0-1); EOSINOPHILS % (AUTO) 1 % (1-7); LYMPHOCYTES % (AUTO) 11 % (22-44); MEAN CORPUSCULAR HEMOGLOBIN 28.7 pg (27.0-34.8); MEAN CORPUSCULAR HGB CONC 33.2 g/dL (32.4-35.8); MEAN PLATELET VOLUME 7.4 fL (7.4-10.4); MONOCYTES % (AUTO) 8 % (2-9); NEUTROPHILS % (AUTO) 80 % (42-75); PLATELET COUNT 411 x10^3/uL (130-400); RED BLOOD COUNT 2.88 x10^6/uL (3.82-5.3); RED CELL DISTRIBUTION WIDTH 13.1 % (9.6-15.2)
[2021-02-23 15:34] LABS: MD NO
[2021-02-23 18:59] VITALS: BP 115/75
[2021-02-23] MEDS ORDERED: IRON DEXTRAN COMPLEX 25 MG in SODIUM CHLORIDE 0.9% 50 ML IV ONE (22:30)
[2021-02-24] MEDS: PIPERACILLIN/TAZO 4.5 GM in DEXTROSE 5% 100 ML IVPB SCH ×3 (00:04→11:30)
[2021-02-24] MEDS ORDERED: EPINEPHRINE 1 MG/ML, 1ML IM ONE (00:30)
[2021-02-24] MEDS ORDERED: IRON DEXTRAN COMPLEX IV ONE (01:00)
[2021-02-24] MEDS ORDERED: SODIUM CHLORIDE 0.9% IV ONE (01:00)
[2021-02-24 01:11] VITALS: BP 134/73
[2021-02-24] MEDS: ONDANSETRON 2MG/ML, 2ML IVPush PRN (04:24)
[2021-02-24] MEDS: HYDROmorphone 2 MG/ML, 1ML IVPush PRN (04:24)
[2021-02-24] MEDS: D5%-0.45NACL+KCL 20MEQ 1,000 ML IV SCH (04:35)
[2021-02-24 05:28] LABS: BASOPHILS % (AUTO) 1 % (0-1); EOSINOPHILS % (AUTO) 2 % (1-7); LYMPHOCYTES % (AUTO) 8 % (22-44); MEAN CORPUSCULAR HEMOGLOBIN 29.1 pg (27.0-34.8); MEAN CORPUSCULAR HGB CONC 33.6 g/dL (32.4-35.8); MEAN PLATELET VOLUME 7.6 fL (7.4-10.4); MONOCYTES % (AUTO) 9 % (2-9); NEUTROPHILS % (AUTO) 80 % (42-75); PLATELET COUNT 345 x10^3/uL (130-400); RED BLOOD COUNT 2.75 x10^6/uL (3.82-5.3)
[2021-02-24 05:34] LABS: MD NO
[2021-02-24 05:35] LABS: ALBUMIN 2.6 g/dL (3.4-5.0); ANION GAP 5 mmol/L (5-15); CALCIUM 7.9 mg/dL (8.5-10.1); CHLORIDE 106 mmol/L (98-107); CREATININE 1.18 mg/dL (0.55-1.02)
[2021-02-24 05:38] LABS: ALKALINE PHOSPHATASE 111 U/L (45-117); BILIRUBIN,TOTAL 0.3 mg/dL (0.2-1.0); TOTAL PROTEIN 5.8 g/dL (6.4-8.2)
[2021-02-24 05:44] LABS: ALANINE AMINOTRANSFERASE 26 U/L (12-78)
[2021-02-24 06:51] VITALS: BP 112/65
[2021-02-24] MEDS: SENNA/DOCUSATE TABLET PO SCH (08:35)
[2021-02-24] MEDS: PANTOPRAZOLE 80 MG in SODIUM CHLORIDE 0.9% 100 ML IV SCH (09:25)
[2021-02-24] MEDS ORDERED: LEVO750T6 PO ×2 (09:45)
[2021-02-24] MEDS ORDERED: POTA20TA6 PO (09:45)
[2021-02-24] MEDS ORDERED: OMEP-110 PO (09:45)
[2021-02-24] MEDS ORDERED: FERR-51 PO (09:45)
[2021-02-24] MEDS ORDERED: ONDA4TAB13 SL (09:45)
== END 2021-02-24 12:05 | disposition home or self-care (01) | DRG 374 ==
LOC: ED 07:17 → ORIP 09:37 → 4NW 10:04 → 4WST 02-20 21:53 → DCLOUNGE 02-24 12:02
PROVIDERS: ADMIT Family Medicine; ATTEND Family Medicine
PROC: 0T9130Z Drainage of Left Kidney with Drainage Device, Percutaneous Approach (ICD-10-PCS; 2021-02-16)
PROC: 0T25X0Z Change Drainage Device in Kidney, External Approach (ICD-10-PCS; 2021-02-17)
PROC: 0W3P8ZZ Control Bleeding in Gastrointestinal Tract, Via Natural or Artificial Opening Endoscopic (ICD-10-PCS; 2021-02-20)
PROC: 3E0G8GC Introduction of Other Therapeutic Substance into Upper GI, Via Natural or Artificial Opening Endoscopic (ICD-10-PCS; 2021-02-20)
PROC: 0D20XUZ Change Feeding Device in Upper Intestinal Tract, External Approach (ICD-10-PCS; principal; 2021-02-20 22:00)
DX: C18.9 Malignant neoplasm of colon, unspecified (principal); E43 Unspecified severe protein-calorie malnutrition; N17.0 Acute kidney failure with tubular necrosis; C79.9 Secondary malignant neoplasm of unspecified site; N13.6 Pyonephrosis; K56.690 Other partial intestinal obstruction; Z68.1 Body mass index [BMI] 19.9 or less, adult; K92.2 Gastrointestinal hemorrhage, unspecified; B96.5 Pseudomonas (aeruginosa) (mallei) (pseudomallei) as the cause of diseases classified elsewhere; D50.9 Iron deficiency anemia, unspecified; E83.52 Hypercalcemia; E86.0 Dehydration; Z20.822 Contact with and (suspected) exposure to COVID-19; Z86.19 Personal history of other infectious and parasitic diseases; Z85.048 Personal history of other malignant neoplasm of rectum, rectosigmoid junction, and anus; Z87.891 Personal history of nicotine dependence; Z90.721 Acquired absence of ovaries, unilateral; Z93.3 Colostomy status; Z80.0 Family history of malignant neoplasm of digestive organs; Z93.4 Other artificial openings of gastrointestinal tract status; Z93.6 Other artificial openings of urinary tract status; Z88.8 Allergy status to other drugs, medicaments and biological substances
CPT/HCPCS: 36415; 50435; 74018; 74022; 76000; 96361; 96374; 96375; 99285; J3490; 49440; 49441; 49465; 74174; 74177; 80048; 80053; 81001; 82728; 83540; 83550; 83690; 83735; 84100; 85014; 85018; 85025; 87040; 87077; 87086; 87147; 87186; 87635; 99156; 99157; C1725; G0378; J0696; J1100; J1170; J1750; J2250; J2405; J2543; J2550; J2704; J2710; J3010; Q0162; Q9966; Q9967; C1729; C1751; C1769; C9113; J0330; J2060; J2270; J2310; J3480; J7030; J7050

== ENCOUNTER 2021-03-01 16:14 | Inpatient (IN) | payer MEDICAID ==
[~2021-03-01] VITALS: Ht 180.3 cm; Wt 45.1 kg
[~2021-03-01 16:14] MED LIST changes: +FERR-51 PO; +LEVO750T6 PO; +OMEP-110 PO; +ONDA4TAB13 SL; +POTA20TA6 PO
--- NOTE | 2021-03-01 16:30 | NUR ---
Pt BIB EMS due to continious vomitting that has been consistant since Thursday. Pt is actively vomitting red tinged stomach contents and ostomy is full of green liquid, both of which is not normal for this pt. Stomach is tender throughout and pt states she has been having body aches. Pt is tearful but was given two warm blankets for comfort. VSS, WCTM
[2021-03-01] MEDS ORDERED: KETAMINE 10 MG/ML, 20ML IV STA (17:21)
[2021-03-01] MEDS ORDERED: ONDANSETRON 2MG/ML, 2ML ONE (17:28)
[2021-03-01] MEDS ORDERED: KETOROLAC 30 MG/1 ML ONE (17:28)
[2021-03-01] MEDS ORDERED: ONDANSETRON 2MG/ML, 2ML IVPush ONE (17:30)
[2021-03-01] MEDS ORDERED: SODIUM CHLORIDE 0.9% 1,000ML IVBOLUS ONE (17:30)
[2021-03-01] MEDS ORDERED: SODIUM CHLORIDE FLUSH 10ML SYR IVF ONE (17:30)
[2021-03-01] MEDS ORDERED: KETAMINE 10 MG/ML, 20ML ONE (17:35)
[2021-03-01 17:52] LABS: BASOPHILS % (AUTO) 0 % (0-1); EOSINOPHILS % (AUTO) 2 % (1-7); LYMPHOCYTES % (AUTO) 8 % (22-44); MEAN CORPUSCULAR HEMOGLOBIN 29.3 pg (27.0-34.8); MEAN CORPUSCULAR HGB CONC 32.9 g/dL (32.4-35.8); MEAN PLATELET VOLUME 7.3 fL (7.4-10.4); MONOCYTES % (AUTO) 5 % (2-9); NEUTROPHILS % (AUTO) 86 % (42-75); PLATELET COUNT 615 x10^3/uL (130-400); RED BLOOD COUNT 3.22 x10^6/uL (3.82-5.3); RED CELL DISTRIBUTION WIDTH 15.1 % (9.6-15.2)
[2021-03-01] MEDS ORDERED: METOCLOPRAMIDE 5 MG/ML, 2ML IVPush ONE (18:00)
[2021-03-01] MEDS ORDERED: METOCLOPRAMIDE 5 MG/ML, 2ML ONE (18:01)
[2021-03-01 18:04] LABS: ALBUMIN 3.1 g/dL (3.4-5.0); ANION GAP 10 mmol/L (5-15); CHLORIDE 111 mmol/L (98-107)
--- NOTE | 2021-03-01 18:09 | NUR ---
Pt medicated for pain and nausea, nausea still remained after 20 mins and remedicated per MAR
[2021-03-01 18:14] LABS: ALANINE AMINOTRANSFERASE 15 U/L (12-78); ALKALINE PHOSPHATASE 93 U/L (45-117); BILIRUBIN,TOTAL 0.3 mg/dL (0.2-1.0); TOTAL PROTEIN 6.3 g/dL (6.4-8.2)
[2021-03-01 18:22] LABS: MD SCAN
[2021-03-01] MEDS ORDERED: OMNIPAQUE 350 MG/ML, 100ML BOTTLE ONE (18:30)
--- NOTE | 2021-03-01 18:39 | NUR ---
Pt to IR for PICC line placement.
--- NOTE | 2021-03-01 18:51 | NUR ---
Report to Nadine ZHAO
--- NOTE | 2021-03-01 18:56 | NUR ---
pt back from ir, picc line ready to use per written order
[2021-03-01] MEDS ORDERED: ZIPRASIDONE 20 MG INJ IM ONE ×2 (19:00→19:12)
--- NOTE | 2021-03-01 19:00 | NUR ---
pt to ct at this time, pt crying and states she is having back and abdomenal pain, orders recieved. pt to ct at this time
--- NOTE | 2021-03-01 19:45 | NUR ---
att x1. will call back
[2021-03-01 19:54] LABS: AMPHETAMINE SCREEN, URINE Positive (Negative); BARBITURATE SCREEN, URINE Negative (Negative); BENZODIAZEPINE SCREEN, URINE Negative (Negative); CANNABINOID SCREEN, URINE Positive (Negative); COCAINE SCREEN, URINE Negative (Negative); METHADONE SCREEN, URINE Negative (Negative); OPIATE SCREEN, URINE Positive (Negative)
--- NOTE | 2021-03-01 19:57 | NUR ---
report given to rosa garcia
[2021-03-01] MEDS ORDERED: ACETAMINOPHEN 325 MG TABLET PO PRN (20:30)
[2021-03-01] MEDS ORDERED: MELATONIN 5 MG TABLET PO PRN (20:30)
[2021-03-01] MEDS ORDERED: DOCUSATE 100 MG CAPSULE PO PRN (20:30)
[2021-03-01 20:38] VITALS: BP 153/80
[2021-03-01] MEDS: HYDROmorphone 2 MG/ML, 1ML IVPush PRN (21:09)
[2021-03-01] MEDS: POTASSIUM CHLORIDE 20 MEQ in SODIUM CHLORIDE 0.45% 1,000 ML IV SCH (21:58)
[2021-03-01 22:26] VITALS: BP 153/80
[2021-03-02 00:17] LABS: MICROSCOPIC INDICATED
[2021-03-02] MEDS: HYDROmorphone 2 MG/ML, 1ML IVPush PRN ×5 (00:31→21:26)
[2021-03-02 00:38] VITALS: BP 139/88
[2021-03-02] MEDS ORDERED: LEVOFLOXACIN/PMX 500MG/100ML 100 ML IV SCH (01:30)
[2021-03-02] MEDS ORDERED: PHARMACY MAY ADJ FOR RENAL FX MC PRN (01:30)
[2021-03-02] MEDS: ONDANSETRON 2MG/ML, 2ML IVPush PRN (05:35)
[2021-03-02 06:14] LABS: ANION GAP 9 mmol/L (5-15); CALCIUM 8.7 mg/dL (8.5-10.1); CHLORIDE 108 mmol/L (98-107)
[2021-03-02 06:15] LABS: CREATININE 0.92 mg/dL (0.55-1.02)
[2021-03-02 06:16] LABS: MEAN CORPUSCULAR HEMOGLOBIN 29.2 pg (27.0-34.8); MEAN CORPUSCULAR HGB CONC 32.9 g/dL (32.4-35.8); MEAN PLATELET VOLUME 8.1 fL (7.4-10.4); PLATELET COUNT 602 x10^3/uL (130-400); RED BLOOD COUNT 3.08 x10^6/uL (3.82-5.3); RED CELL DISTRIBUTION WIDTH 15.3 % (9.6-15.2)
[2021-03-02 06:43] LABS: MD YES
[2021-03-02 06:46] LABS: BAND#(MANUAL) 0.62 x10^3/uL; BANDS%(MANUAL) 3 % (0-7); EOS#(MANUAL) 0.42 x10^3/uL (0.0-0.4); EOS% (MANUAL) 2 % (1-7); LYMPH#(MANUAL) 1.25 x10^3/uL (1-3.4); LYMPHS% (MANUAL) 6 % (22-44); MONOS#(MANUAL) 0.62 x10^3/uL (0.3-2.7); MONOS% (MANUAL) 3 % (2-9); SEG#(MANUAL) 17.89 x10^3/uL (1.8-6.8); SEGS% (MANUAL) 86 % (42-75)
[2021-03-02 06:47] LABS: ANISOCYTOSIS 1+; POLYCHROMASIA 1+
[2021-03-02 06:48] LABS: <PLATELET ESTIMATE> INCREASED; <PLT MORPHOLOGY> NORMAL PLT MORPH
[2021-03-02 06:52] VITALS: BP 93/58
[2021-03-02] MEDS: FERROUS SULFATE 325 MG TABLET PO SCH (08:27)
[2021-03-02] MEDS: POTASSIUM CHLORIDE 20 MEQ in SODIUM CHLORIDE 0.45% 1,000 ML IV SCH ×2 (08:27→16:01)
[2021-03-02 13:41] VITALS: BP 94/59
[2021-03-02 16:15] VITALS: BP 113/63
[2021-03-02 20:07] VITALS: BP 100/67
[2021-03-02] MEDS: LEVOFLOXACIN 500 MG TABLET PO SCH (21:26)
[2021-03-03 00:09] VITALS: BP 93/57
[2021-03-03] MEDS: HYDROmorphone 2 MG/ML, 1ML IVPush PRN ×5 (00:20→20:18)
[2021-03-03] MEDS: POTASSIUM CHLORIDE 20 MEQ in SODIUM CHLORIDE 0.45% 1,000 ML IV SCH ×3 (00:50→16:05)
[2021-03-03 02:52] LABS: ALBUMIN 2.7 g/dL (3.4-5.0); ANION GAP 5 mmol/L (5-15); CHLORIDE 109 mmol/L (98-107); CREATININE 0.89 mg/dL (0.55-1.02)
[2021-03-03] MEDS: ONDANSETRON 2MG/ML, 2ML IVPush PRN ×3 (03:28→15:02)
[2021-03-03 03:33] LABS: BASOPHILS % (AUTO) 1 % (0-1); EOSINOPHILS % (AUTO) 4 % (1-7); LYMPHOCYTES % (AUTO) 12 % (22-44); MEAN CORPUSCULAR HEMOGLOBIN 29.6 pg (27.0-34.8); MEAN CORPUSCULAR HGB CONC 32.5 g/dL (32.4-35.8); MEAN PLATELET VOLUME 6.7 fL (7.4-10.4); MONOCYTES % (AUTO) 10 % (2-9); NEUTROPHILS % (AUTO) 73 % (42-75); PLATELET COUNT 478 x10^3/uL (130-400); RED BLOOD COUNT 2.74 x10^6/uL (3.82-5.3); RED CELL DISTRIBUTION WIDTH 15.9 % (9.6-15.2)
[2021-03-03 03:34] LABS: MD NO
[2021-03-03 07:32] VITALS: BP 97/56
[2021-03-03] MEDS ORDERED: POTASSIUM PHOSPHATE 44 MEQ in SODIUM CHLORIDE 0.9% 500 ML IV ONE (12:00)
[2021-03-03 14:57] VITALS: BP 93/61
[2021-03-03 18:36] VITALS: BP 98/63
[2021-03-03] MEDS: LEVOFLOXACIN 500 MG TABLET PO SCH (22:23)
[2021-03-04] MEDS: HYDROmorphone 2 MG/ML, 1ML IVPush PRN ×2 (00:07→03:57)
[2021-03-04] MEDS: POTASSIUM CHLORIDE 20 MEQ in SODIUM CHLORIDE 0.45% 1,000 ML IV SCH ×2 (03:57→13:59)
[2021-03-04 04:20] LABS: BASOPHILS % (AUTO) 1 % (0-1); EOSINOPHILS % (AUTO) 4 % (1-7); LYMPHOCYTES % (AUTO) 14 % (22-44); MEAN CORPUSCULAR HEMOGLOBIN 30.2 pg (27.0-34.8); MEAN CORPUSCULAR HGB CONC 33.5 g/dL (32.4-35.8); MEAN PLATELET VOLUME 7.6 fL (7.4-10.4); MONOCYTES % (AUTO) 12 % (2-9); NEUTROPHILS % (AUTO) 69 % (42-75); PLATELET COUNT 413 x10^3/uL (130-400); RED BLOOD COUNT 2.59 x10^6/uL (3.82-5.3); RED CELL DISTRIBUTION WIDTH 16.4 % (9.6-15.2)
[2021-03-04 04:21] LABS: MD NO
[2021-03-04 04:29] LABS: ALBUMIN 2.6 g/dL (3.4-5.0); CALCIUM 7.9 mg/dL (8.5-10.1)
[2021-03-04 04:38] LABS: ANION GAP 5 mmol/L (5-15); CHLORIDE 108 mmol/L (98-107)
[2021-03-04] MEDS: ONDANSETRON 2MG/ML, 2ML IVPush PRN ×2 (07:08→20:14)
[2021-03-04 07:26] VITALS: BP 88/45
[2021-03-04] MEDS: FERROUS SULFATE 325 MG TABLET PO SCH ×2 (09:19→09:20)
[2021-03-04 14:42] VITALS: BP 100/65
[2021-03-04] MEDS ORDERED: MAGNESIUM SULFATE PMX 2GM/50ML 50 ML IV ONE (15:30)
[2021-03-04 18:45] VITALS: BP 106/75
[2021-03-04] MEDS: LEVOFLOXACIN 500 MG TABLET PO SCH (22:00)
[2021-03-05] MEDS: ONDANSETRON 2MG/ML, 2ML IVPush PRN ×5 (01:29→23:49)
[2021-03-05 01:42] VITALS: BP 100/64
[2021-03-05] MEDS: PROMETHAZINE 25 MG/ML, 1ML IM PRN ×3 (04:47→16:09)
[2021-03-05] MEDS: POTASSIUM CHLORIDE 20 MEQ in SODIUM CHLORIDE 0.45% 1,000 ML IV SCH ×4 (05:13→17:50)
[2021-03-05 07:47] VITALS: BP 149/73
[2021-03-05] MEDS ORDERED: LORazepam 2 MG/ML, 1ML IVPush ONE (08:00)
[2021-03-05] MEDS ORDERED: morphine SULFATE ORAL.CONC 20 MG/ML PO PRN (09:30)
[2021-03-05 14:00] VITALS: BP 160/93
[2021-03-05] MEDS: METOCLOPRAMIDE 10MG TABLET PO SCH ×2 (16:09→21:05)
[2021-03-05] MEDS: morphine SULFATE ORAL.CONC 20 MG/ML PO PRN ×2 (17:50→23:49)
[2021-03-05 19:03] VITALS: BP 157/85
[2021-03-05] MEDS ORDERED: LEVOFLOXACIN/PMX 500MG/100ML 100 ML IV SCH (22:30)
[2021-03-06 02:22] VITALS: BP 156/96
[2021-03-06] MEDS: POTASSIUM CHLORIDE 20 MEQ in SODIUM CHLORIDE 0.45% 1,000 ML IV SCH ×2 (02:30→09:16)
[2021-03-06 05:00] VITALS: BP 139/78
[2021-03-06 05:00] LABS: BASOPHILS % (AUTO) 0 % (0-1); EOSINOPHILS % (AUTO) 2 % (1-7); LYMPHOCYTES % (AUTO) 11 % (22-44); MEAN CORPUSCULAR HEMOGLOBIN 29.7 pg (27.0-34.8); MEAN CORPUSCULAR HGB CONC 33.1 g/dL (32.4-35.8); MEAN PLATELET VOLUME 7.4 fL (7.4-10.4); MONOCYTES % (AUTO) 11 % (2-9); NEUTROPHILS % (AUTO) 77 % (42-75); PLATELET COUNT 464 x10^3/uL (130-400); RED BLOOD COUNT 3.33 x10^6/uL (3.82-5.3); RED CELL DISTRIBUTION WIDTH 16.4 % (9.6-15.2)
[2021-03-06 05:01] LABS: MD NO
[2021-03-06 05:10] LABS: ALANINE AMINOTRANSFERASE 17 U/L (12-78); ALBUMIN 3.1 g/dL (3.4-5.0); ANION GAP 6 mmol/L (5-15); CALCIUM 8.9 mg/dL (8.5-10.1); CHLORIDE 103 mmol/L (98-107); CREATININE 0.81 mg/dL (0.55-1.02)
[2021-03-06 05:13] LABS: ALKALINE PHOSPHATASE 86 U/L (45-117); BILIRUBIN,TOTAL 0.2 mg/dL (0.2-1.0); TOTAL PROTEIN 6.8 g/dL (6.4-8.2)
[2021-03-06] MEDS: METOCLOPRAMIDE 10MG TABLET PO SCH ×3 (06:25→15:50)
[2021-03-06 06:44] VITALS: BP 108/73
[2021-03-06] MEDS: ONDANSETRON 2MG/ML, 2ML IVPush PRN ×2 (08:26→15:46)
[2021-03-06] MEDS: FERROUS SULFATE 325 MG TABLET PO SCH (09:16)
[2021-03-06] MEDS: morphine SULFATE ORAL.CONC 20 MG/ML PO PRN (09:16)
[2021-03-06] MEDS ORDERED: METO10TA2 PO (10:59)
[2021-03-06] MEDS ORDERED: ONDA4TAB7 PO ×2 (10:59)
[2021-03-06] MEDS ORDERED: PROM12.554 PR (10:59)
[2021-03-06] MEDS ORDERED: MORP10CA7 PO (11:03)
[2021-03-06 12:52] VITALS: BP 132/83
[2021-03-06] MEDS ORDERED: MORP2VIA PO (18:09)
== END 2021-03-06 17:52 | disposition home health service (06) | DRG 389 ==
LOC: ED 18:32 → EDIP 18:38 → 3N 20:23 → 4NW 03-02 16:07
PROVIDERS: ADMIT Family Medicine; ATTEND Family Medicine
PROC: 02HV33Z Insertion of Infusion Device into Superior Vena Cava, Percutaneous Approach (ICD-10-PCS; principal; 2021-03-01)
PROC: B5181ZA Fluoroscopy of Superior Vena Cava using Low Osmolar Contrast, Guidance (ICD-10-PCS; 2021-03-01)
DX: K56.609 Unspecified intestinal obstruction, unspecified as to partial versus complete obstruction (principal); R64 Cachexia; C19 Malignant neoplasm of rectosigmoid junction; C79.9 Secondary malignant neoplasm of unspecified site; Z68.1 Body mass index [BMI] 19.9 or less, adult; G89.3 Neoplasm related pain (acute) (chronic); D72.829 Elevated white blood cell count, unspecified; F15.10 Other stimulant abuse, uncomplicated; Z93.4 Other artificial openings of gastrointestinal tract status; Z93.3 Colostomy status; Z90.49 Acquired absence of other specified parts of digestive tract; Z85.048 Personal history of other malignant neoplasm of rectum, rectosigmoid junction, and anus; Z88.5 Allergy status to narcotic agent; Z88.8 Allergy status to other drugs, medicaments and biological substances
CPT/HCPCS: 36415; 36573; 74177; 74250; 80048; 80053; 80069; 80307; 81001; 83605; 83735; 84100; 85025; 96374; 99285; G0378; J1170; J1956; J2405; J2550; J3480; J3486; Q9967; C1751; J2060; J2765; J3475; J7030; J7040; Q0181

== ENCOUNTER 2021-04-05 08:02 | Day surgery (SDC) | payer MEDICAID ==
[~2021-04-05] VITALS: Ht 180.3 cm; Wt 45.9 kg
[~2021-04-05 08:02] MED LIST changes: +METO10TA2 PO; +MORP10CA7 PO; +MORP2VIA PO; +ONDA4TAB7 PO; +PROM12.554 PR
[2021-04-05 08:36] VITALS: BP 92/56
[2021-04-05] MEDS ORDERED: morphine PO (08:39)
[2021-04-05] MEDS ORDERED: SODIUM CHLORIDE 0.9% 1,000 ML IV SCH (09:00)
[2021-04-05] MEDS ORDERED: CEFAZOLIN PMX 1GM/50ML 50 ML IV ONE (09:00)
[2021-04-05] MEDS ORDERED: LIDOCAINE 1%, 20ML ONE (10:09)
[2021-04-05] MEDS ORDERED: MIDAZOLAM 1 MG/ML, 5ML ONE (10:19)
[2021-04-05] MEDS ORDERED: FENTANYL PF 100 MCG/2ML ONE (10:19)
[2021-04-05] MEDS ORDERED: FLUMAZENIL 0.1 MG/1 ML, 5ML ONE (10:20)
[2021-04-05] MEDS ORDERED: NALOXONE 1 MG/ML, 2ML ONE (10:20)
== END 2021-04-05 13:00 | disposition home or self-care (01) ==
LOC: OUT 08:02 → EDSTATUS 10:00 → OUT 13:00
PROVIDERS: ATTEND Internal Medicine
DX: C18.7 Malignant neoplasm of sigmoid colon (principal); Z79.899 Other long term (current) drug therapy; Z88.5 Allergy status to narcotic agent; Z88.8 Allergy status to other drugs, medicaments and biological substances
CPT/HCPCS: 36561; 77001; 99156; 99157; C1788; J0690; J1642; J2250; J2310; J3010; J7030

== ENCOUNTER 2021-05-26 23:08 | Inpatient (IN) | payer MEDICAID ==
[~2021-05-26] VITALS: Ht 180.3 cm; Wt 48.7 kg
[~2021-05-26 23:08] MED LIST changes: +morphine PO
[2021-05-26] MEDS ORDERED: ONDANSETRON 2MG/ML, 2ML IVPush ONE (23:30)
[2021-05-26] MEDS ORDERED: MORPHINE SULFATE 4 MG/ML, 1ML ONE (23:35)
[2021-05-26] MEDS ORDERED: ONDANSETRON 2MG/ML, 2ML ONE (23:35)
[2021-05-26 23:47] LABS: MEAN CORPUSCULAR HEMOGLOBIN 28.4 pg (27.0-34.8); MEAN CORPUSCULAR HGB CONC 33.5 g/dL (32.4-35.8); MEAN PLATELET VOLUME 7.8 fL (7.4-10.4); PLATELET COUNT 167 x10^3/uL (130-400); RED BLOOD COUNT 4.69 x10^6/uL (3.82-5.3); RED CELL DISTRIBUTION WIDTH 14.6 % (9.6-15.2)
[2021-05-26] MEDS: MORPHINE SULFATE 4 MG/ML, 1ML IVPush PRN (23:54)
[2021-05-27] LABS: ALANINE AMINOTRANSFERASE 50 U/L (12-78); ALBUMIN 3.6 g/dL (3.4-5.0); ANION GAP 5 mmol/L (5-15); CALCIUM 9.2 mg/dL (8.5-10.1); CHLORIDE 103 mmol/L (98-107); CREATININE 0.93 mg/dL (0.55-1.02)
[2021-05-27 00:02] LABS: ALKALINE PHOSPHATASE 143 U/L (45-117); BILIRUBIN,TOTAL 0.8 mg/dL (0.2-1.0); TOTAL PROTEIN 7.8 g/dL (6.4-8.2)
--- NOTE | 2021-05-27 00:02 | NUR ---
Patient presents to ER c/o increased pain around colostomy site and nausea since last night. Patient has a hx of stage 4 colonorectoral cancer. She received her second dose of chemo on Thursday and patient states, "it was a bad dose." Patient hasn't felt well since then. Patient took her last dose of home morphine a couple hours ago with no relief. [facility] admin Zofran ODT and 50mcg Fentanyl IN with little relief. Patient has an implanted port.
[2021-05-27 00:10] LABS: MICROSCOPIC INDICATED
--- NOTE | 2021-05-27 00:14 | NUR ---
Patient to CT.
[2021-05-27 00:18] LABS: BAND#(MANUAL) 0.01 x10^3/uL; BANDS%(MANUAL) 1 % (0-7); BASOS#(MANUAL) 0.03 x10^3/uL (0-0.1); BASOS% (MANUAL) 2 % (0-1); EOS#(MANUAL) 0.03 x10^3/uL (0.0-0.4); EOS% (MANUAL) 2 % (1-7); LYMPH#(MANUAL) 0.55 x10^3/uL (1-3.4); LYMPHS% (MANUAL) 39 % (22-44); MONOS#(MANUAL) 0.07 x10^3/uL (0.3-2.7); MONOS% (MANUAL) 5 % (2-9); REACTIVE LYMPHS # (MANUAL) 0.01 x10^3/uL (0-0); REACTIVE LYMPHS % (MANUAL) 1 % (0-0); SEGS% (MANUAL) 50 % (42-75)
[2021-05-27] MEDS ORDERED: OMNIPAQUE 350 MG/ML, 100ML BOTTLE ONE (00:20)
[2021-05-27 00:21] LABS: ANISOCYTOSIS 1+; OVALOCYTES 1+
[2021-05-27 00:22] LABS: <PLATELET ESTIMATE> ADEQUATE; <PLT MORPHOLOGY> NORMAL PLT MORPH
--- NOTE | 2021-05-27 00:57 | NUR ---
Patient tbadm. Per patient request, contacted Jeronimo ordaz, to update with patient POC.
--- NOTE | 2021-05-27 00:57 | NUR ---
Patient pain under control at this time. Medicated patient per mar with antibiotics.
[2021-05-27] MEDS ORDERED: CEFTRIAXONE 1,000 MG in DEXTROSE 5% 50 ML IVPB ONE ×2 (01:00→07:00)
[2021-05-27] MEDS ORDERED: MORPHINE SULFATE 4 MG/ML, 1ML IVPush PRN (02:00)
[2021-05-27] MEDS ORDERED: ONDANSETRON 2MG/ML, 2ML IVPush PRN (02:00)
[2021-05-27] MEDS ORDERED: SODIUM CHLORIDE 0.9% 1,000 ML IV ONE (02:00)
[2021-05-27] MEDS ORDERED: ONDANSETRON 2MG/ML, 2ML ONE (02:21)
[2021-05-27] MEDS ORDERED: MORPHINE SULFATE 4 MG/ML, 1ML ONE (02:22)
[2021-05-27] MEDS: MORPHINE SULFATE 4 MG/ML, 1ML IVPush PRN (02:31)
[2021-05-27] MEDS ORDERED: POLYETHYLENE GLYCOL 17 GM PACKET PO PRN (03:00)
[2021-05-27] MEDS ORDERED: BISACODYL 10 MG SUPP PR PRN (03:00)
[2021-05-27] MEDS ORDERED: ACETAMINOPHEN 325 MG TABLET PO PRN (03:00)
[2021-05-27] MEDS: ENOXAPARIN 40 MG/0.4 ML SQ SCH (03:00)
--- NOTE | 2021-05-27 03:10 | NUR ---
Report given to CECE Beltran. Patient to be transferred to room 446.
[2021-05-27] MEDS ORDERED: MORPHINE MC SCH (04:00)
[2021-05-27] MEDS ORDERED: CEFTRIAXONE 1,000 MG IVPB ONE (06:30)
[2021-05-27 06:53] LABS: MEAN CORPUSCULAR HEMOGLOBIN 28.5 pg (27.0-34.8); MEAN CORPUSCULAR HGB CONC 33.7 g/dL (32.4-35.8); MEAN PLATELET VOLUME 7.6 fL (7.4-10.4); PLATELET COUNT 148 x10^3/uL (130-400); RED BLOOD COUNT 3.95 x10^6/uL (3.82-5.3); RED CELL DISTRIBUTION WIDTH 14.1 % (9.6-15.2)
[2021-05-27 06:54] VITALS: BP 96/52
[2021-05-27 07:03] LABS: ANION GAP 4 mmol/L (5-15); CALCIUM 8.8 mg/dL (8.5-10.1); CHLORIDE 109 mmol/L (98-107); CREATININE 0.78 mg/dL (0.55-1.02)
[2021-05-27] MEDS: morphine SULFATE 10 MG/ML, 1ML IVPush PRN ×2 (07:13→11:36)
[2021-05-27] MEDS: SENNA/DOCUSATE TABLET PO SCH (07:49)
[2021-05-27 07:50] LABS: BAND#(MANUAL) 0.02 x10^3/uL; BANDS%(MANUAL) 1 % (0-7)
[2021-05-27 07:51] LABS: EOS#(MANUAL) 0.05 x10^3/uL (0.0-0.4); EOS% (MANUAL) 3 % (1-7); MONOS#(MANUAL) 0.12 x10^3/uL (0.3-2.7); MONOS% (MANUAL) 8 % (2-9)
[2021-05-27 07:52] LABS: <PLATELET ESTIMATE> DECREASED; <PLT MORPHOLOGY> NORMAL PLT MORPH; ANISOCYTOSIS 1+; ECHINOCYTES 1+; LYMPH#(MANUAL) 0.59 x10^3/uL (1-3.4); LYMPHS% (MANUAL) 39 % (22-44); SEG#(MANUAL) 0.74 x10^3/uL (1.8-6.8); SEGS% (MANUAL) 49 % (42-75)
[2021-05-27 07:56] VITALS: BP 118/74
[2021-05-27 12:26] VITALS: BP 98/66
[2021-05-27] MEDS ORDERED: CEFEPIME 1 GM in DEXTROSE 5% 50 ML IV SCH (13:00)
[2021-05-27] MEDS: MEROPENEM 1 GM in SODIUM CHLORIDE 0.9% 100 ML IV SCH ×2 (16:28→23:25)
[2021-05-27] MEDS ORDERED: TBO-FILGRASTIM 300 MCG/0.5 ML SQ SCH ×2 (16:30→20:00)
[2021-05-27 18:38] VITALS: BP 95/61
[2021-05-27] MEDS ORDERED: CEFTRIAXONE 2 GM in DEXTROSE 5% 50 ML IVPB SCH (21:00)
[2021-05-28 02:18] VITALS: BP 103/67
[2021-05-28] MEDS: ENOXAPARIN 40 MG/0.4 ML SQ SCH (03:33)
[2021-05-28] MEDS: OXYcodone IR 5MG TABLET PO PRN ×3 (03:44→14:49)
[2021-05-28 03:56] LABS: BASOPHILS % (AUTO) 0 % (0-1); EOSINOPHILS % (AUTO) 1 % (1-7); LYMPHOCYTES % (AUTO) 16 % (22-44); MEAN CORPUSCULAR HEMOGLOBIN 28.5 pg (27.0-34.8); MEAN CORPUSCULAR HGB CONC 33.4 g/dL (32.4-35.8); MEAN PLATELET VOLUME 7.8 fL (7.4-10.4); MONOCYTES % (AUTO) 4 % (2-9); NEUTROPHILS % (AUTO) 78 % (42-75); PLATELET COUNT 140 x10^3/uL (130-400); RED BLOOD COUNT 3.69 x10^6/uL (3.82-5.3); RED CELL DISTRIBUTION WIDTH 14.3 % (9.6-15.2)
[2021-05-28 04:06] LABS: ALANINE AMINOTRANSFERASE 34 U/L (12-78); ALBUMIN 2.5 g/dL (3.4-5.0); ANION GAP 4 mmol/L (5-15); CALCIUM 8.2 mg/dL (8.5-10.1); CHLORIDE 107 mmol/L (98-107); CREATININE 0.72 mg/dL (0.55-1.02)
[2021-05-28 04:11] LABS: ALKALINE PHOSPHATASE 115 U/L (45-117); BILIRUBIN,TOTAL 0.4 mg/dL (0.2-1.0); PREALBUMIN 9.1 mg/dL (20.0-40.0); TOTAL PROTEIN 6.1 g/dL (6.4-8.2)
[2021-05-28] MEDS: MEROPENEM 1 GM in SODIUM CHLORIDE 0.9% 100 ML IV SCH ×2 (06:49→16:22)
[2021-05-28 06:56] VITALS: BP 97/61
[2021-05-28] MEDS: SENNA/DOCUSATE TABLET PO SCH (09:35)
[2021-05-28] MEDS: AMPICILLIN/SULBACTAM 1,500 MG in SODIUM CHLORIDE 0.9% 50 ML IV SCH ×2 (11:57→19:20)
[2021-05-28] MEDS ORDERED: LIDOCAINE 1%, 10ML ONE (12:22)
[2021-05-28] MEDS ORDERED: MIDAZOLAM 1 MG/ML, 5ML ONE (12:37)
[2021-05-28] MEDS ORDERED: FLUMAZENIL 0.1 MG/1 ML, 5ML ONE (12:37)
[2021-05-28] MEDS ORDERED: FENTANYL PF 100 MCG/2ML ONE (12:37)
[2021-05-28] MEDS ORDERED: NALOXONE 1 MG/ML, 2ML ONE (12:37)
[2021-05-28 13:45] VITALS: BP 107/69
[2021-05-28] MEDS ORDERED: TBO-FILGRASTIM 300 MCG/0.5 ML SQ SCH (16:00)
[2021-05-28 18:42] VITALS: BP 92/54
[2021-05-29] MEDS: MEROPENEM 1 GM in SODIUM CHLORIDE 0.9% 100 ML IV SCH ×3 (00:07→16:24)
[2021-05-29 00:15] VITALS: BP 92/52
[2021-05-29] MEDS: AMPICILLIN/SULBACTAM 1,500 MG in SODIUM CHLORIDE 0.9% 50 ML IV SCH ×3 (01:41→15:44)
[2021-05-29] MEDS: OXYcodone IR 5MG TABLET PO PRN ×4 (01:48→20:21)
[2021-05-29] MEDS: ENOXAPARIN 40 MG/0.4 ML SQ SCH (03:15)
[2021-05-29 03:46] LABS: BASOPHILS % (AUTO) 1 % (0-1); EOSINOPHILS % (AUTO) 2 % (1-7); LYMPHOCYTES % (AUTO) 21 % (22-44); MEAN CORPUSCULAR HEMOGLOBIN 28.7 pg (27.0-34.8); MEAN CORPUSCULAR HGB CONC 33.9 g/dL (32.4-35.8); MEAN PLATELET VOLUME 7.9 fL (7.4-10.4); MONOCYTES % (AUTO) 6 % (2-9); NEUTROPHILS % (AUTO) 71 % (42-75); PLATELET COUNT 133 x10^3/uL (130-400); RED BLOOD COUNT 3.63 x10^6/uL (3.82-5.3); RED CELL DISTRIBUTION WIDTH 13.9 % (9.6-15.2)
[2021-05-29 03:55] LABS: ANION GAP 4 mmol/L (5-15); CALCIUM 8.3 mg/dL (8.5-10.1); CHLORIDE 104 mmol/L (98-107); CREATININE 0.76 mg/dL (0.55-1.02)
[2021-05-29 06:32] VITALS: BP 104/66
[2021-05-29] MEDS: SENNA/DOCUSATE TABLET PO SCH (09:03)
[2021-05-29 12:34] VITALS: BP 104/67
[2021-05-29] MEDS: LEVOFLOXACIN/PMX 500MG/100ML 100 ML IV SCH (20:02)
[2021-05-29 20:08] VITALS: BP 102/66
[2021-05-30] VITALS (8 sets, daily range): BP systolic 84–111; BP diastolic 43–71
[2021-05-30] MEDS: OXYcodone IR 5MG TABLET PO PRN ×3 (00:26→17:45)
[2021-05-30 05:01] LABS: MEAN CORPUSCULAR HEMOGLOBIN 28.1 pg (27.0-34.8); MEAN PLATELET VOLUME 7.7 fL (7.4-10.4); PLATELET COUNT 140 x10^3/uL (130-400); RED CELL DISTRIBUTION WIDTH 13.9 % (9.6-15.2)
[2021-05-30 05:08] LABS: ANION GAP 4 mmol/L (5-15); CALCIUM 8.8 mg/dL (8.5-10.1); CHLORIDE 106 mmol/L (98-107)
[2021-05-30 05:10] LABS: CREATININE 0.53 mg/dL (0.55-1.02)
[2021-05-30] MEDS: ENOXAPARIN 40 MG/0.4 ML SQ SCH (05:29)
[2021-05-30 05:49] LABS: BAND#(MANUAL) 0.05 x10^3/uL; BANDS%(MANUAL) 3 % (0-7)
[2021-05-30 05:50] LABS: EOS#(MANUAL) 0.12 x10^3/uL (0.0-0.4); EOS% (MANUAL) 7 % (1-7); REACTIVE LYMPHS # (MANUAL) 0.02 x10^3/uL (0-0); REACTIVE LYMPHS % (MANUAL) 1 % (0-0)
[2021-05-30 05:51] LABS: LYMPH#(MANUAL) 0.92 x10^3/uL (1-3.4); LYMPHS% (MANUAL) 54 % (22-44); MONOS#(MANUAL) 0.24 x10^3/uL (0.3-2.7); MONOS% (MANUAL) 14 % (2-9); SEG#(MANUAL) 0.36 x10^3/uL (1.8-6.8); SEGS% (MANUAL) 21 % (42-75)
[2021-05-30 05:53] LABS: <PLATELET ESTIMATE> ADEQUATE; <PLT MORPHOLOGY> NORMAL PLT MORPH; <RBC MORPHOLOGY> NORMAL
[2021-05-30] MEDS: SENNA/DOCUSATE TABLET PO SCH (08:40)
[2021-05-30] MEDS ORDERED: LACTATED RINGERS 1,000 ML IVBOLUS ONE (09:00)
[2021-05-30] MEDS ORDERED: LORazepam 2 MG/ML, 1ML IVPush ONE (09:00)
[2021-05-30] MEDS: TBO-FILGRASTIM 300 MCG/0.5 ML SQ SCH (09:25)
[2021-05-30] MEDS: PIPERACILLIN/TAZO 3.375 GM in DEXTROSE 5% 50 ML IV SCH (18:26)
[2021-05-30] MEDS: LEVOFLOXACIN/PMX 500MG/100ML 100 ML IV SCH (20:05)
[2021-05-30] MEDS ORDERED: ONDANSETRON 2MG/ML, 2ML IVPush PRN (22:30)
[2021-05-31] VITALS (10 sets, daily range): BP systolic 86–130; BP diastolic 56–71
[2021-05-31] MEDS: PIPERACILLIN/TAZO 3.375 GM in DEXTROSE 5% 50 ML IV SCH ×4 (00:27→17:52)
[2021-05-31] MEDS: ENOXAPARIN 40 MG/0.4 ML SQ SCH (05:50)
[2021-05-31 08:33] LABS: MEAN CORPUSCULAR HEMOGLOBIN 28.4 pg (27.0-34.8); MEAN CORPUSCULAR HGB CONC 33.5 g/dL (32.4-35.8); MEAN PLATELET VOLUME 7.9 fL (7.4-10.4); PLATELET COUNT 136 x10^3/uL (130-400); RED BLOOD COUNT 3.75 x10^6/uL (3.82-5.3)
[2021-05-31] MEDS: SENNA/DOCUSATE TABLET PO SCH (09:25)
[2021-05-31] MEDS: TBO-FILGRASTIM 300 MCG/0.5 ML SQ SCH (09:26)
[2021-05-31 09:33] LABS: BAND#(MANUAL) 0.11 x10^3/uL; BANDS%(MANUAL) 6 % (0-7); BASOS#(MANUAL) 0.02 x10^3/uL (0-0.1); BASOS% (MANUAL) 1 % (0-1); EOS#(MANUAL) 0.11 x10^3/uL (0.0-0.4); EOS% (MANUAL) 6 % (1-7); LYMPH#(MANUAL) 0.67 x10^3/uL (1-3.4); LYMPHS% (MANUAL) 37 % (22-44); MONOS#(MANUAL) 0.58 x10^3/uL (0.3-2.7); MONOS% (MANUAL) 32 % (2-9); SEG#(MANUAL) 0.18 x10^3/uL (1.8-6.8); SEGS% (MANUAL) 10 % (42-75)
[2021-05-31 09:34] LABS: OTHER CELLS # (MANUAL) 0.14 x10^3/uL (0-0)
[2021-05-31 09:38] LABS: <PLATELET ESTIMATE> ADEQUATE; <PLT MORPHOLOGY> NORMAL PLT MORPH; <RBC MORPHOLOGY> NORMAL
[2021-05-31 09:41] LABS: OTHER CELLS % (MANUAL) 8 % (0-0)
[2021-05-31] MEDS: OXYcodone IR 5MG TABLET PO PRN ×3 (10:31→19:39)
[2021-05-31] MEDS: morphine SULFATE 10 MG/ML, 1ML IVPush PRN ×3 (13:16→20:02)
[2021-05-31] MEDS ORDERED: SODIUM CHLORIDE 0.9%, 500ML IVBOLUS ONE (19:30)
[2021-05-31] MEDS ORDERED: OMNIPAQUE 350 MG/ML, 100ML BOTTLE ONE (22:05)
[2021-05-31] MEDS: HYDROmorphone 2 MG/ML, 1ML IVPush PRN (22:20)
[2021-06-01] VITALS (7 sets, daily range): BP systolic 70–110; BP diastolic 44–68
[2021-06-01] MEDS: OXYcodone IR 5MG TABLET PO PRN ×3 (00:34→12:48)
[2021-06-01] MEDS: PIPERACILLIN/TAZO 4.5 GM in DEXTROSE 5% 50 ML IV SCH ×2 (00:35→06:23)
[2021-06-01] MEDS: HYDROmorphone 2 MG/ML, 1ML IVPush PRN ×3 (02:10→20:46)
[2021-06-01] MEDS: ENOXAPARIN 40 MG/0.4 ML SQ SCH (05:49)
[2021-06-01] MEDS ORDERED: LACTATED RINGERS 1,000 ML IVBOLUS ONE (08:30)
[2021-06-01 08:49] LABS: MEAN CORPUSCULAR HEMOGLOBIN 28.6 pg (27.0-34.8); MEAN CORPUSCULAR HGB CONC 33.6 g/dL (32.4-35.8); MEAN PLATELET VOLUME 7.8 fL (7.4-10.4); PLATELET COUNT 145 x10^3/uL (130-400); RED BLOOD COUNT 3.74 x10^6/uL (3.82-5.3); RED CELL DISTRIBUTION WIDTH 13.9 % (9.6-15.2)
[2021-06-01] MEDS: SENNA/DOCUSATE TABLET PO SCH (09:01)
[2021-06-01] MEDS: TBO-FILGRASTIM 300 MCG/0.5 ML SQ SCH (09:22)
[2021-06-01 09:25] LABS: BAND#(MANUAL) 1.72 x10^3/uL; BANDS%(MANUAL) 22 % (0-7); EOS#(MANUAL) 0.31 x10^3/uL (0.0-0.4); EOS% (MANUAL) 4 % (1-7); LYMPH#(MANUAL) 2.34 x10^3/uL (1-3.4); LYMPHS% (MANUAL) 30 % (22-44); METAMYELOCYTES# (MANUAL) 0.08 x10^3/uL (0-0); METAMYELOCYTES% (MANUAL) 1 % (0-1); MONOS#(MANUAL) 1.09 x10^3/uL (0.3-2.7); MONOS% (MANUAL) 14 % (2-9); MYELOCYTES# (MANUAL) 0.39 x10^3/uL (0-0); MYELOCYTES% (MANUAL) 5 % (0-0); SEG#(MANUAL) 1.25 x10^3/uL (1.8-6.8); SEGS% (MANUAL) 16 % (42-75)
[2021-06-01 09:26] LABS: OTHER CELLS # (MANUAL) 0.62 x10^3/uL (0-0)
[2021-06-01 09:30] LABS: OTHER CELLS % (MANUAL) 8 % (0-0)
[2021-06-01 09:31] LABS: <PLATELET ESTIMATE> DECREASED; <PLT MORPHOLOGY> NORMAL PLT MORPH; <RBC MORPHOLOGY> NORMAL
[2021-06-01] MEDS: PIPERACILLIN/TAZO 4.5 GM in DEXTROSE 5% 100 ML IV SCH ×2 (12:48→18:42)
[2021-06-01] MEDS: MIDODRINE 5 MG TABLET PO SCH ×3 (12:49→20:31)
[2021-06-01] MEDS ORDERED: GADOTERATE 5 MMOL/10ML SYR ONE (18:00)
[2021-06-02 00:41] VITALS: BP 97/59
[2021-06-02] MEDS: HYDROmorphone 2 MG/ML, 1ML IVPush PRN ×4 (00:47→21:37)
[2021-06-02] MEDS: PIPERACILLIN/TAZO 4.5 GM in DEXTROSE 5% 100 ML IV SCH ×4 (00:48→18:36)
[2021-06-02] MEDS: ENOXAPARIN 40 MG/0.4 ML SQ SCH (06:22)
[2021-06-02 06:23] VITALS: BP 90/44
[2021-06-02] MEDS: MIDODRINE 5 MG TABLET PO SCH ×3 (08:21→21:37)
[2021-06-02] MEDS: SENNA/DOCUSATE TABLET PO SCH (08:21)
[2021-06-02 13:26] VITALS: BP 92/51
[2021-06-02] MEDS: OXYcodone IR 5MG TABLET PO PRN ×2 (13:39→19:42)
[2021-06-02 20:00] VITALS: BP 106/65
[2021-06-03 00:40] VITALS: BP 101/62
[2021-06-03] MEDS: OXYcodone IR 5MG TABLET PO PRN (00:43)
[2021-06-03] MEDS: PIPERACILLIN/TAZO 4.5 GM in DEXTROSE 5% 100 ML IV SCH ×3 (00:43→12:51)
[2021-06-03 05:42] LABS: CREATININE 0.86 mg/dL (0.55-1.02)
[2021-06-03] MEDS: ENOXAPARIN 40 MG/0.4 ML SQ SCH (06:21)
[2021-06-03 06:43] VITALS: BP 116/63
[2021-06-03] MEDS: MIDODRINE 5 MG TABLET PO SCH ×2 (08:58→16:22)
[2021-06-03] MEDS: SENNA/DOCUSATE TABLET PO SCH (08:58)
[2021-06-03] MEDS ORDERED: AMPICILLIN 500MG CAPSULE PO SCH (10:00)
[2021-06-03] MEDS ORDERED: MIDO5TAB9 PO (15:56)
[2021-06-03] MEDS ORDERED: OXYC5TAB98 PO (15:56)
[2021-06-03] MEDS ORDERED: AMPI500C2 PO (16:06)
[2021-06-03] MEDS ORDERED: CEFT2VIA53 IV (16:06)
[2021-06-03 16:24] VITALS: BP 123/82
== END 2021-06-03 16:50 | disposition home or self-care (01) | DRG 698 ==
LOC: ED 23:38 → SUATTDRO 05-27 02:02 → EDIP 05-27 02:32 → 4NE 05-27 03:28 → 4NW 05-28 16:04
PROVIDERS: ADMIT Student in an Organized Health Care Education/Training Program; ATTEND Internal Medicine
PROC: 0T913ZZ Drainage of Left Kidney, Percutaneous Approach (ICD-10-PCS; principal; 2021-05-28)
DX: T83.518A Infection and inflammatory reaction due to other urinary catheter, initial encounter (principal); E43 Unspecified severe protein-calorie malnutrition; N10 Acute pyelonephritis; C18.7 Malignant neoplasm of sigmoid colon; C78.7 Secondary malignant neoplasm of liver and intrahepatic bile duct; K55.1 Chronic vascular disorders of intestine; K57.92 Diverticulitis of intestine, part unspecified, without perforation or abscess without bleeding; R64 Cachexia; Z68.1 Body mass index [BMI] 19.9 or less, adult; D70.1 Agranulocytosis secondary to cancer chemotherapy; E86.0 Dehydration; K80.20 Calculus of gallbladder without cholecystitis without obstruction; T45.1X5A Adverse effect of antineoplastic and immunosuppressive drugs, initial encounter; K21.9 Gastro-esophageal reflux disease without esophagitis; Y84.6 Urinary catheterization as the cause of abnormal reaction of the patient, or of later complication, without mention of misadventure at the time of the procedure; Z80.0 Family history of malignant neoplasm of digestive organs; Z80.1 Family history of malignant neoplasm of trachea, bronchus and lung; Z82.3 Family history of stroke; Z85.048 Personal history of other malignant neoplasm of rectum, rectosigmoid junction, and anus; Z88.5 Allergy status to narcotic agent; Z90.49 Acquired absence of other specified parts of digestive tract; Z93.6 Other artificial openings of urinary tract status
CPT/HCPCS: 36415; 50435; 84145; 96365; 96375; 99285; J3490; 71260; 72158; 74174; 74176; 74177; 80048; 80053; 81001; 82533; 82565; 83605; 83615; 83690; 83735; 84100; 84134; 85025; 87040; 87077; 87086; 87186; 93005; 99156; 99157; G0378; J0692; J0696; J1170; J1650; J1956; J2185; J2250; J2405; J2543; J3010; Q9967; A9575; C1729; C1769; J0295; J1447; J2060; J2270; J2310; J7030; J7040; J7120

== ENCOUNTER 2021-06-14 09:58 | Emergency (ER) | payer MEDICAID ==
[~2021-06-14] VITALS: Ht 180.3 cm; Wt 43.0 kg
[~2021-06-14 09:58] MED LIST changes: +AMPI500C2 PO; +CEFT2VIA53 IV; +MIDO5TAB9 PO
[2021-06-14] MEDS ORDERED: HYDROmorphone 2 MG/ML, 1ML ONE ×2 (10:43→12:58)
[2021-06-14] MEDS ORDERED: ONDANSETRON 2MG/ML, 2ML ONE (10:43)
[2021-06-14] MEDS ORDERED: ONDANSETRON 2MG/ML, 2ML IVPush ONE (11:00)
[2021-06-14] MEDS ORDERED: SODIUM CHLORIDE FLUSH 10ML SYR IVF ONE (11:00)
[2021-06-14] MEDS ORDERED: HYDROmorphone 1 MG/ML, 1ML INJ IV ONE (11:00)
[2021-06-14] MEDS ORDERED: SODIUM CHLORIDE 0.9% 1,000ML IVBOLUS ONE (11:00)
[2021-06-14 11:34] LABS: BASOPHILS % (AUTO) 4 % (0-1); EOSINOPHILS % (AUTO) 0 % (1-7); LYMPHOCYTES % (AUTO) 10 % (22-44); MEAN CORPUSCULAR HEMOGLOBIN 29.1 pg (27.0-34.8); MEAN CORPUSCULAR HGB CONC 33.2 g/dL (32.4-35.8); MEAN PLATELET VOLUME 7.6 fL (7.4-10.4); MONOCYTES % (AUTO) 7 % (2-9); NEUTROPHILS % (AUTO) 80 % (42-75); PLATELET COUNT 416 x10^3/uL (130-400); RED BLOOD COUNT 4.11 x10^6/uL (3.82-5.3); RED CELL DISTRIBUTION WIDTH 18.2 % (9.6-15.2)
[2021-06-14 11:40] LABS: ANION GAP 8 mmol/L (5-15); CHLORIDE 104 mmol/L (98-107)
[2021-06-14 11:41] LABS: ALANINE AMINOTRANSFERASE 22 U/L (12-78); ALBUMIN 3.6 g/dL (3.4-5.0); ALKALINE PHOSPHATASE 134 U/L (45-117); BILIRUBIN,TOTAL 0.4 mg/dL (0.2-1.0); CALCIUM 10.4 mg/dL (8.5-10.1); CREATININE 0.88 mg/dL (0.55-1.02); TOTAL PROTEIN 7.7 g/dL (6.4-8.2)
[2021-06-14 12:22] VITALS: BP 138/66
[2021-06-14] MEDS ORDERED: HYDROmorphone 2 MG/ML, 1ML IV ONE (13:00)
== END 2021-06-14 13:23 | disposition home or self-care (01) ==
LOC: ED 11:51
DX: R10.84 Generalized abdominal pain (principal); R10.31 Right lower quadrant pain; Z90.89 Acquired absence of other organs; Z90.710 Acquired absence of both cervix and uterus; Z85.038 Personal history of other malignant neoplasm of large intestine
CPT/HCPCS: 36415; 80053; 83605; 83690; 85025; 96361; 96374; 96375; 96376; 99284; J1170; J2405; J7030

== ENCOUNTER 2021-07-13 04:55 | Emergency (ER) | payer MEDICAID ==
[~2021-07-13] VITALS: Ht 180.3 cm; Wt 43.8 kg
[~2021-07-13 04:55] MED LIST changes: +POTA-143 PO; -POTA20TA6 PO
[2021-07-13] MEDS ORDERED: ONDANSETRON 2MG/ML, 2ML IVPush ONE (05:30)
[2021-07-13] MEDS ORDERED: SODIUM CHLORIDE FLUSH 10ML SYR IVF ONE (05:30)
[2021-07-13] MEDS ORDERED: MORPHINE SULFATE 4 MG/ML, 1ML IVPush PRN (05:30)
[2021-07-13] MEDS ORDERED: ONDANSETRON 2MG/ML, 2ML ONE (05:32)
[2021-07-13] MEDS ORDERED: MORPHINE SULFATE 4 MG/ML, 1ML ONE (05:32)
[2021-07-13 05:42] LABS: BASOPHILS % (AUTO) 1 % (0-1); EOSINOPHILS % (AUTO) 4 % (1-7); LYMPHOCYTES % (AUTO) 19 % (22-44); MEAN CORPUSCULAR HEMOGLOBIN 29.7 pg (27.0-34.8); MEAN CORPUSCULAR HGB CONC 33.6 g/dL (32.4-35.8); MEAN PLATELET VOLUME 7.2 fL (7.4-10.4); MONOCYTES % (AUTO) 7 % (2-9); NEUTROPHILS % (AUTO) 70 % (42-75); PLATELET COUNT 337 x10^3/uL (130-400); RED CELL DISTRIBUTION WIDTH 17.1 % (9.6-15.2)
[2021-07-13 05:52] LABS: ALANINE AMINOTRANSFERASE 71 U/L (12-78); ALBUMIN 3.7 g/dL (3.4-5.0); ANION GAP 5 mmol/L (5-15); CALCIUM 10.5 mg/dL (8.5-10.1); CHLORIDE 104 mmol/L (98-107); CREATININE 1.02 mg/dL (0.55-1.02)
--- NOTE | 2021-07-13 05:52 | NUR ---
PT REPROTS COMING TO THE ER FOR "GALLBLADDER FLARE UP". PT PASSED MULTIPLE GALLSTONES ON THURSDAY AND IS SCHEDULED FOR A CONSULT TO TAKE GALLBLADDER OUT IN 3 DAYS. PT REPORTS PAIN IS UNBAREABLE AND HURTS TO PALPATE. PT HAS A COLOSTOMY AND UROSTOMY BAG IN PLACE. PT HAS STAGE 4 COLORECTAL CANCER AND IS RECIEVING CHEMOTHERAPY. PT CONNECTED TO VITAL MACHINE MONITOR AND MD AT BEDSIDE UPON ASSESSMENT
[2021-07-13 05:54] LABS: ALKALINE PHOSPHATASE 430 U/L (45-117); BILIRUBIN,TOTAL 0.5 mg/dL (0.2-1.0); TOTAL PROTEIN 8.2 g/dL (6.4-8.2)
--- NOTE | 2021-07-13 06:59 | NUR ---
REPORT GIVEN TO CECE HYLTON. CARE TRANSFERED.
--- NOTE | 2021-07-13 08:32 | NUR ---
PT REC'VD DISCHARGE INSTRUCTIONS AND EDUCATION. PT HAD NO FURTHER QUESTIONS.
--- NOTE | 2021-07-13 08:35 | NUR ---
PT AMBULATED WITH SPOUSE TO DC AREA, STEADY GAIT
[2021-07-13 09:20] VITALS: BP 124/81
== END 2021-07-13 09:22 | disposition home or self-care (01) ==
LOC: ED 04:59
DX: K80.20 Calculus of gallbladder without cholecystitis without obstruction (principal); I95.9 Hypotension, unspecified
CPT/HCPCS: 36415; 76700; 80053; 83690; 85025; 96374; 96375; 99284; J2270; J2405

== ENCOUNTER 2021-07-15 02:53 | Emergency (ER) | payer MEDICAID ==
[~2021-07-15] VITALS: Ht 180.3 cm; Wt 45.2 kg
[2021-07-15 06:37] VITALS: BP 88/43
== END 2021-07-15 08:29 | disposition home or self-care (01) ==
LOC: ED 03:00
DX: R10.84 Generalized abdominal pain (principal); R11.0 Nausea
CPT/HCPCS: 36415; 74177; 80053; 83690; 85025; 96361; 96374; 96375; 96376; 99285; J1170; J2405; J7030; Q9967